=== PATIENT | female | born 1970 ===

== ENCOUNTER 2018-02-12 14:06 | Inpatient (IN) | payer OTHER ==
--- NOTE | 2018-02-12 14:58 | ED PDOC ---
Arrival/HPI - General Historian: Patient - History of Present Illness Time/Duration: 24 hours Symptom Onset: Sudden Symptom Course: Unchanged Activities at Onset: Rest Context: Walking, Exertion <Elias Mart - Last Filed: 02/12/18 18:41> <Rufina Rios - Last Filed: 02/12/18 18:43> - General Chief Complaint: Shortness Of Breath Time Seen by Provider: 02/12/18 14:11 - History of Present Illness Narrative History of Present Illness (Text): 02/12/18 14:50 Patient is a 47 year-old female with PMH of peripheral vascular disease ( underwent a venous vascular procedure in her right leg 2 days ago) presents to the ED complaining of shortness of breath, weakness, and dizziness. Patient states these symptoms started yesterday morning after sleeping all night and most of the previous day. Patient states every time she gets up she feels weak and gets very short of breath. Patient also admits to having a cramp-like pain in her calves bilaterally. This calf cramping is a chronic issue. Two weeks ago she had LE doppler which was negative for DVT. She also reports that she has noticed easy bruising for the past two months and has not yet discussed this with her PMD. Patient reports that she smokes 2-3 cigarettes per day. Patient denies fever/chills, nausea/vomiting, cough, chest pain, or any syncopal episodes. (Elias Mart) Past Medical History - Provider Review Nursing Documentation Reviewed: Yes - Travel History Have you recently traveled outside [place] w/in the past 3 mons?: No - Infectious Disease Hx of Infectious Diseases: None - Cardiac Hx Cardiac Disorders: Yes Other/Comment: Right leg vascular procedure - Pulmonary Hx Respiratory Disorders: No - Neurological Hx Neurological Disorder: No - HEENT Hx HEENT Disorder: No - Renal Hx Renal Disorder: No - Endocrine/Metabolic Hx Endocrine Disorders: No - Hematological/Oncological Hx Blood Disorders: No - Integumentary Hx Dermatological Disorder: No - Musculoskeletal/Rheumatological Hx Musculoskeletal Disorders: No - Gastrointestinal Hx Gastrointestinal Disorders: No - Genitourinary/Gynecological Hx Genitourinary Disorders: No - Psychiatric Hx Psychophysiologic Disorder: No Hx Substance Use: No - Anesthesia Hx Anesthesia: No <Elias Mart - Last Filed: 02/12/18 18:41> Family/Social History - Physician Review Nursing Documentation Reviewed: Yes Family/Social History: Diabetes (mother) Smoking Status: Never Smoked Hx Alcohol Use: No Hx Substance Use: No <Elias Mart - Last Filed: 02/12/18 18:41> Allergies/Home Meds <Elias Mart - Last Filed: 02/12/18 18:41> <Rufina Rios - Last Filed: 02/12/18 18:43> Allergies/Adverse Reactions: Allergies latex Allergy (Verified 02/12/18 14:35) RASH Home Medications: Home Meds Medication Instructions Recorded Confirmed No Known Home Med 02/12/18 02/12/18 Review of Systems - Review of Systems Constitutional: absent: Fatigue, Fevers Eyes: absent: Vision Changes, Photophobia ENT: absent: Sore Throat, Rhinorrhea Respiratory: SOB. absent: Cough, Sputum, Wheezing Cardiovascular: Edema, Calf Pain, GALINDO. absent: Chest Pain Gastrointestinal: absent: Abdominal Pain, Nausea, Vomiting Genitourinary Female: absent: Dysuria, Frequency Musculoskeletal: absent: Neck Pain, Joint Swelling Skin: absent: Rash, Pruritis Neurological: Dizziness. absent: Headache Endocrine: absent: Diaphoresis Hemo/Lymphatic: Easy Bruising. absent: Adenopathy Psychiatric: absent: Anxiety, Depression <Elias Mart - Last Filed: 02/12/18 18:41> Physical Exam Vital Signs Reviewed: Yes Temperature: Afebrile Blood Pressure: Normal Pulse: Tachycardic Respiratory Rate: Tachypneic Appearance: Positive for: Non-Toxic, Uncomfortable Pain Distress: Mild Mental Status: Positive for: Alert and Oriented X 3 - Systems Exam Head: Present: Atraumatic, Normocephalic Pupils: Present: PERRL Extroacular Muscles: Present: EOMI Conjunctiva: Present: Normal Mouth: Present: Moist Mucous Membranes Pharnyx: Present: Normal. No: ERYTHEMA, EXUDATE Nose (External): Present: Atraumatic Neck: Present: Normal Range of Motion. No: JVD Respiratory/Chest: Present: Clear to Auscultation. No: Wheezes, Rales, Rhonchi Cardiovascular: Present: Regular Rate and Rhythm, Normal S1, S2. No: Murmurs, Rub, Gallop Abdomen: No: Tenderness, Rebound, Guarding Back: Present: Normal Inspection Upper Extremity: Present: Normal Inspection. No: Cyanosis, Edema Lower Extremity: Present: Edema, Capillary Refill < 2 s, Other (small, clean and dry post-op wounds on R medial knee). No: Cyanosis Neurological: Present: Speech Normal, Motor Func Grossly Intact Skin: Present: Warm, Dry Psychiatric: Present: Alert, Oriented x 3 <Elias Mart - Last Filed: 02/12/18 18:41> Vital Signs Temp Pulse Resp BP Pulse Ox 02/12/18 17:33 97.8 F 90 18 145/97 H 98 02/12/18 15:24 18 100 02/12/18 14:27 97.8 F 131 H 18 135/94 H 100 Medical Decision Making <Elias Mart - Last Filed: 02/12/18 18:41> - Critical Care Critical Care Minutes: 30 minutes Critical Care Time: Excluding Proc Time - Lab Interpretations I have reviewed the lab results: Yes - RAD Interpretation Band Nailer: Radiologist - EKG Interpretation Interpreted by ED Physician: Yes Type: 12 lead EKG <Rufina Rios - Last Filed: 02/12/18 18:43> ED Course and Treatment: 02/12/18 15:01 -Patient states she is still SOB with even mild exertion -Also found to be tachycardic on arrival -Given recent vascular surgery, will work up for PE -CBC, CMP, CXR, UA -Will proceed with CTA after CMP 02/12/18 17:40 -Patient states she feels better s/p one dose of toradol -CXR unremarkable -Will give 1L NS bolus -She is going for CTA now 02/12/18 18:40 -CTA positive for bilateral pulmonary emboli -Troponin 0.14 -Plan on admission to ICU -Spoke with Dr. Chun who reached out to ICU team who agrees to admission ( Elias Mart) 02/12/18 In agreement with resident note, which includes further HPI details. Patient was seen and evaluated with resident, came up with plan and treatment together. Patient presenting with shortness of breath and tachycardia after surgery, concerning for PE Chest X-ray: Creator : Natalia Wall MD FINDINGS: LUNGS: The lungs are well inflated and clear. PLEURA: No significant pleural effusion identified, no pneumothorax apparent. CARDIOVASCULAR: Normal. OSSEOUS STRUCTURES: No significant abnormalities. VISUALIZED UPPER ABDOMEN: Normal. OTHER FINDINGS: None. IMPRESSION: No active pulmonary disease. 02/12/[address] with Contrast: Creator : Natalia Wall MD FINDINGS: PULMONARY ARTERIES: There are central filling defects in both upper lobe, right middle lobe, lingular and bilateral lower lobe segmental pulmonary arteries. There is no filling defect in the pulmonary trunk or main pulmonary arteries. AORTA: No acute findings. No thoracic aortic aneurysm. LUNGS: The lungs are well inflated. There is a 6 mm subpleural nodule in the lateral basal segment of the right lower lobe (series 5, image 17). There is linear atelectasis in the lingula. No left lung nodule, mass or pulmonary consolidation. PLEURAL SPACES: No effusion or pneumothorax. HEART: The heart is normal in size. There is mild enlargement of the right ventricle and leftward bowing of the interventricular septum. LYMPH NODES: No lymphadenopathy. BONES, CHEST WALL: Unremarkable. No fracture or destructive lesion OTHER FINDINGS: Fatty liver. Both adrenal glands are normal. No calcified gallstones. IMPRESSION: 1. Extensive acute pulmonary embolism involving the segmental bilateral upper lobe, right middle lobe, lingular and bilateral lower lobe pulmonary arteries with evidence of right ventricular strain. 2. 6 mm subpleural nodule in the lateral basal segment of the right lower lobe. Follow-up CT scan 6-12 month interval is recommended to assess stability of this nodule. Critical findings were discussed with Dr. Rufina Rios on 02/12/2018 at 6: 10 p.m. 02/12/18 18:42 02/12/18 18:11 Discussed case with , who is aware and agrees with ICU placement for Heparin bolus and IV drip for PE. She agrees to admit patient to her service. (Rufina Rios) - Lab Interpretations Lab Results: 02/12/18 16:00 02/12/18 16:51 Lab Results 02/12/18 16:51: Sodium 142, Potassium 3.9, Chloride 109 H, Carbon Dioxide 24, Anion Gap 13, BUN 18, Creatinine 0.8, Est GFR ( Amer) > 60, Est GFR (Non- Af Amer) > 60, Random Glucose 99, Calcium 9.1, Phosphorus 3.3, Magnesium 2.4 H, Total Bilirubin 0.6, AST 42 H, ALT 38, Alkaline Phosphatase 68, Lactate Dehydrogenase 661, Total Creatine Kinase 48, Troponin I 0.14 H*, NT-Pro-B Natriuret Pep 2310 H, Total Protein 6.6, Albumin 3.8, Globulin 2.8, Albumin/ Globulin Ratio 1.4 02/12/18 16:00: PT 10.5, INR 0.92, APTT 26.4 02/12/18 16:00: WBC 12.5 H, RBC 4.17, Hgb 13.6, Hct 40.5, MCV 97.1, MCH 32.6, MCHC 33.6, RDW 15.5 H, Plt Count 222, MPV 10.3, Gran % 81.6 H, Lymph % (Auto) 11.6 L, [place] % (Auto) 6.4 H, Eos % (Auto) 0.3 L, Baso % (Auto) 0.1, Gran # 10.23 H, Lymph # (Auto) 1.5, [place] # (Auto) 0.8 H, Eos # (Auto) 0.0, Baso # (Auto ) 0.01 - RAD Interpretation Radiology Orders: 02/12/18 14:47 CHEST PORTABLE [RAD] Stat 02/12/18 15:08 ANGIO CHEST PE PROTOCOL [CT] Stat - Medication Orders Current Medication Orders: Heparin Sodium/Sodium Chloride (Heparin 83647 Units/250ml 1/2 Normal Saline) 25 ,000 units in 250 mls @ 18.077 mls/hr IV .[id number] PRN; Protocol; 18 UNITS/KG/HR PRN Reason: ADJUST RATE PER PROTOCOL Last Admin: 02/12/18 18:30 Dose: 18.077 mls/hr eMAR Start Stop Document 02/12/18 18:30 OCS (Rec: 02/12/18 18:31 OCS [id number]) Intravenous Solution Start Date 02/12/18 Start Time 18:31 MAR aPTT Document 02/12/18 18:30 OCS (Rec: 02/12/18 18:31 OCS [id number]) aPTT aPTT (secs) 26.2 Discontinued Medications Aspirin (Aspirin Chewable) 324 mg PO STAT STA Stop: 02/12/18 17:53 Last Admin: 02/12/18 18:30 Dose: 324 mg Heparin Sodium (Porcine) (Heparin) 5,000 units IV ONCE ONE PRN Reason: Protocol Stop: 02/12/18 18:14 Last Admin: 02/12/18 18:29 Dose: 5,000 units eMAR Start Stop Document 02/12/18 18:29 OCS (Rec: 02/12/18 18:30 OCS [id number]) Intravenous Solution Start Date 02/12/18 Start Time 18:29 End Date 02/12/18 End time 18:31 Total Infusion Time 2 MAR aPTT Document 02/12/18 18:29 OCS (Rec: 02/12/18 18:30 OCS [id number]) aPTT aPTT (secs) 26.4 Sodium Chloride (Sodium Chloride 0.9%) 1,000 mls @ 999 mls/hr IV .Q1H1M STA Stop: 02/12/18 18:33 Last Admin: 02/12/18 18:32 Dose: 999 mls/hr eMAR Start Stop Document 02/12/18 18:32 OCS (Rec: 02/12/18 18:33 OCS [id number]) Intravenous Solution Start Date 02/12/18 Start Time 18:33 End Date 02/12/18 End time 19:34 Total Infusion Time 61 Ketorolac Tromethamine (Toradol) 30 mg IVP STAT STA Stop: 02/12/18 15:07 Last Admin: 02/12/18 16:09 Dose: 30 mg MAR Pain Assessment Document 02/12/18 16:09 OCS (Rec: 02/12/18 16:09 [id number] Pain Reassessment Is this a pain reassessment? No Sleep Is patient sleeping during reassessment? No Presence of Pain Presence of Pain Yes Pain Scale Used Pain Scale Used Numeric IVP Administration Document 02/12/18 16:09 OCS (Rec: 02/12/18 16:09 OCS [id number]) Charges for Administration # of IVP Administrations 1 <Elias Mart - Last Filed: 02/12/18 18:41> - Scribe Statement The provider has reviewed the documentation as recorded by the Scribe <Rufina Rios - Last Filed: 02/12/18 18:43> - Scribe Statement Juve Alonso Provider Scribe Attestation: All medical record entries made by the Scribe were at my direction and personally dictated by me. I have reviewed the chart and agree that the record accurately reflects my personal performance of the history, physical exam, medical decision making, and the department course for this patient. I have also personally directed, reviewed, and agree with the discharge instructions and disposition. (Rufina Rios) Disposition/Present on Arrival - Present on Arrival Any Indicators Present on Arrival: No History of DVT/PE: No History of Uncontrolled Diabetes: No Urinary Catheter: No History of Decub. Ulcer: No History Surgical Site Infection Following: None - Disposition Disposition Time: 18:28 Patient Plan: ICU <Elias Mart - Last Filed: 02/12/18 18:41> - Disposition Have Diagnosis and Disposition been Completed?: Yes Patient Plan: ICU <Rufina Rios - Last Filed: 02/12/18 18:43> - Disposition Diagnosis: Pulmonary emboli Disposition: HOSPITALIZED Patient Problems: Current Active Problems Problem Status Onset Pulmonary emboli Acute Condition: CRITICAL
[2018-02-12 16:21] LABS: BASO # 0.01 K/mm3 (0.0-2.0); BASO % 0.1 % (0.0-3.0); EOS % 0.3 % (1.5-5.0); GRAN # 10.23 (1.4-6.5); GRAN % 81.6 % (50.0-68.0); HEMOGLOBIN 13.6 g/dL (12.0-16.0); LYMPH # 1.5 (1.2-3.4); LYMPH % 11.6 % (22.0-35.0); MEAN CELL VOLUME 97.1 fl (80.0-105.0); MEAN CORPUSCULAR HEMOGLOBIN 32.6 pg (25.0-35.0); MEAN CORPUSCULAR HGB CONC 33.6 g/dl (31.0-37.0); MEAN PLATELET VOLUME 10.3 fl (7.0-11.0); MONO # 0.8 (0.1-0.6); MONO % 6.4 % (1.0-6.0); RBC 4.17 10^6/uL (3.5-6.1); RED CELL DISTRIBUTION WIDTH 15.5 % (11.5-14.5); WHITE BLOOD COUNT 12.5 10^3/ul (4.5-11.0)
[2018-02-12 16:35] LABS: INR 0.92; PARTIAL THROMBOPLASTIN TIME 26.4 Seconds (25.1-36.5); PROTHROMBIN TIME 10.5 SECONDS (9.4-12.5)
[2018-02-12 17:25] LABS: ALB/GLOB RATIO 1.4 (1.1-1.8); ALBUMIN 3.8 g/dL (3.0-4.8); ALT/SGPT 38 U/L (7-56); AST/SGOT 42 U/L (14-36); BLOOD UREA NITROGEN 18 mg/dL (7-21); CALCIUM 9.1 mg/dL (8.4-10.5); GFR AFRICAN-AMERICAN > 60; GFR NON-AFRICAN AMERICAN > 60
[2018-02-12] MEDS ORDERED: Iodixanol 320 MG/ML 100 ML BOTTLE IV ONE (17:29)
[2018-02-12] MEDS ORDERED: Sodium Chloride 0.9% 1,000 ML IV STA (17:33)
--- NOTE | 2018-02-12 17:34 | RAD ---
Date of service: 02/12/2018 HISTORY: SOB, recent surgery, concern for PE COMPARISON: No prior. FINDINGS: LUNGS: The lungs are well inflated and clear. PLEURA: No significant pleural effusion identified, no pneumothorax apparent. CARDIOVASCULAR: Normal. OSSEOUS STRUCTURES: No significant abnormalities. VISUALIZED UPPER ABDOMEN: Normal. OTHER FINDINGS: None. IMPRESSION: No active pulmonary disease.
[2018-02-12 17:40] LABS: B-TYPE NATRIURETIC PEPTIDE 2310 pg/mL (0-450); TROPONIN I 0.14 ng/mL
--- NOTE | 2018-02-12 18:19 | CT ---
Date of service: 02/12/2018 PROCEDURE: CT Chest with contrast (Pulmonary Angiogram) HISTORY: shortness of breath, postop COMPARISON: None available. TECHNIQUE: Axial computed tomography images were obtained of the chest in the pulmonary arterial phase of enhancement. Coronal and sagittal reformatted images were created and reviewed. Intravenous contrast dose: 100 mL Visipaque 320 Radiation dose: Total exam DLP = 741.47 mGy-cm. This CT exam was performed using one or more of the following dose reduction techniques: Automated exposure control, adjustment of the mA and/or kV according to patient size, and/or use of iterative reconstruction technique. FINDINGS: PULMONARY ARTERIES: There are central filling defects in both upper lobe, right middle lobe, lingular and bilateral lower lobe segmental pulmonary arteries. There is no filling defect in the pulmonary trunk or main pulmonary arteries. AORTA: No acute findings. No thoracic aortic aneurysm. LUNGS: The lungs are well inflated. There is a 6 mm subpleural nodule in the lateral basal segment of the right lower lobe (series 5, image 17). There is linear atelectasis in the lingula. No left lung nodule, mass or pulmonary consolidation. PLEURAL SPACES: No effusion or pneumothorax. HEART: The heart is normal in size. There is mild enlargement of the right ventricle and leftward bowing of the interventricular septum. LYMPH NODES: No lymphadenopathy. BONES, CHEST WALL: Unremarkable. No fracture or destructive lesion OTHER FINDINGS: Fatty liver. Both adrenal glands are normal. No calcified gallstones. IMPRESSION: 1. Extensive acute pulmonary embolism involving the segmental bilateral upper lobe, right middle lobe, lingular and bilateral lower lobe pulmonary arteries with evidence of right ventricular strain. 2. 6 mm subpleural nodule in the lateral basal segment of the right lower lobe. Follow-up CT scan 6-12 month interval is recommended to assess stability of this nodule. Critical findings were discussed with Dr. Rufina Rios on 02/12/2018 at 6:10 p.m.
[2018-02-12] MEDS: Heparin25000 units/250ml 1/2NS 25,000 UNITS/250 ML BAG IV PRN (18:30)
[2018-02-12] MEDS ORDERED: Albuterol-Ipratrop 3 mg / 0.5 (3 ml) UD IH PRN (18:57)
--- NOTE | 2018-02-12 22:30 | CP.PCM.HP ---
<Marvel Randle - Last Filed: 02/12/18 22:10> History of Present Illness - History of Present Illness History of Present Illness: CC: SOB/Bilateral Leg Pain HPI: Mrs. Neves is a 47 year old female with a past medical history significant for PVD s/p vascular procedure two days PASTE [employer] who presents with two days of SOB and bilateral leg pain. Patient reports that two days ago she had an unspecified vascular procedure done by Dr. Irene in [place], [place]. The next morning, the patient awoke to feeling SOB and with worsening cramping leg pain in her calves bilaterally, which she reports to be chronic. She reports that she stayed in bed for the entire day thinking this was a complication of her procedure and that she would improve. She then awoke this morning with worsening of the same complaints and, after not being able to complete her ADL's , decided to come in for further evaluation. Of note, two weeks ago she had a LE doppler that was negative for DVT's. She denies any other complaints including fevers, chills, headache, chest pain, palpitations, leg swelling, cough, wheezing, hemoptysis, abdominal pain, N/V/D/C, changes in urine output, skin changes, easy bleeding, or any numbness/tingling of any extremity. She also denies any recent travel or personal history of bleeding/clotting disorders. In the ED, patient was found to have extensive acute pulmonary embolism involving the segmental bilateral upper lobe, right middle lobe, lingular and bilateral lower lobe pulmonary arteries with evidence of right ventricular strain on CT Chest with PE protocol. She was given a bolus of heparin and started on a heparin drip. She was then placed under ICU care. PMH: As stated above PSH: As stated above Family History: Mother-"Had a lot of clots" Social History: Smokes 2-3 cigs./day for four years, drinks alcohol socially and denies any illicit drug use Allergies: Latex Home Medications: As per SEP LMP: 12/29/17, regular Present on Admission - Present on Admission Any Indicators Present on Admission: No Review of Systems - Review of Systems Review of Systems: As stated in the HPI, otherwise negative Past Patient History - Infectious Disease Hx of Infectious Diseases: None - Past Social History Smoking Status: Never Smoked - CARDIAC Hx Cardiac Disorders: Yes Other/Comment: Right leg vascular procedure - PULMONARY Hx Respiratory Disorders: No - NEUROLOGICAL Hx Neurological Disorder: No - HEENT Hx HEENT Problems: No - RENAL Hx Chronic Kidney Disease: No - ENDOCRINE/METABOLIC Hx Endocrine Disorders: No - HEMATOLOGICAL/ONCOLOGICAL Hx Blood Disorders: No - INTEGUMENTARY Hx Dermatological Problems: No - MUSCULOSKELETAL/RHEUMATOLOGICAL Hx Musculoskeletal Disorders: No - GASTROINTESTINAL Hx Gastrointestinal Disorders: No - GENITOURINARY/GYNECOLOGICAL Hx Genitourinary Disorders: No - PSYCHIATRIC Hx Psychophysiologic Disorder: No Hx Substance Use: No - SURGICAL HISTORY Hx Surgeries: No - ANESTHESIA Hx Anesthesia: No Meds Allergies/Adverse Reactions: Allergies Allergy/AdvReac Type Severity Reaction Status Date / Time latex Allergy RASH Verified 02/12/18 14:35 Physical Exam - Constitutional Appears: Non-toxic, No Acute Distress - Head Exam Head Exam: ATRAUMATIC, NORMOCEPHALIC - Eye Exam Eye Exam: EOMI, Normal appearance, PERRL Pupil Exam: NORMAL ACCOMODATION - ENT Exam ENT Exam: Mucous Membranes Moist, Normal Exam - Neck Exam Neck exam: Positive for: Full Rom, Normal Inspection. Negative for: Lymphadenopathy, Tenderness - Respiratory Exam Respiratory Exam: Clear to Auscultation Bilateral, NORMAL BREATHING PATTERN. absent: Accessory Muscle Use, Chest Wall Tenderness, Decreased Breath Sounds, Prolonged Expiratory Phase, Rales, Rhonchi, Wheezes, Respiratory Distress, Stridor - Cardiovascular Exam Cardiovascular Exam: REGULAR RHYTHM, RRR, +S1, +S2. absent: Bradycardia, Tachycardia, Clicks, Diastolic murmur, Gallop, Irregular Rhythm, JVD, Rubs, +S4 , Systolic Murmur - GI/Abdominal Exam GI & Abdominal Exam: Normal Bowel Sounds, Soft. absent: Tenderness - Extremities Exam Extremities exam: Positive for: calf tenderness, full ROM, normal capillary refill, tenderness (Calves bilaterally), pedal pulses present. Negative for: joint swelling, normal inspection (RLE with wound dressing from procedure), pedal edema - Back Exam Back exam: absent: CVA tenderness (L), CVA tenderness (R) - Neurological Exam Neurological exam: Alert, CN II-XII Intact, Oriented x3 - Psychiatric Exam Psychiatric exam: Normal Affect, Normal Mood - Skin Skin Exam: Dry, Intact, Normal Color, Warm Results - Vital Signs Recent Vital Signs: Last Vital Signs Temp 98.0 F 02/12/18 21:40 Pulse 85 02/12/18 21:40 Resp 18 02/12/18 21:40 BP 150/90 02/12/18 21:40 Pulse Ox 96 02/12/18 21:40 - Labs Result Diagrams: 02/12/18 16:00 02/12/18 16:51 Assessment & Plan - Assessment and Plan (Free Text) Assessment: 47 year old female with a past medical history significant for PVD s/p vascular procedure two days PASTE [employer] who presents with two days of SOB and bilateral leg pain. In the ED, patient was found to have extensive acute pulmonary embolism involving the segmental bilateral upper lobe, right middle lobe, lingular and bilateral lower lobe pulmonary arteries with evidence of right ventricular strain on CT Chest with PE protocol. She was given a bolus of heparin and started on a heparin drip. She was then placed under ICU care. Plan: 1. Acute PE -CT Chest w/ PE Protocol showed extensive acute pulmonary embolism involving the segmental bilateral upper lobe, right middle lobe, lingular and bilateral lower lobe pulmonary arteries with evidence of right ventricular strain. -Initial troponin elevated at 0.14, with two serial troponins pending -Given bolus of heparin and started on heparin drip -Bilateral Venous Duplex and Echo pending -ICU care -Heme/Onc, IR/Vascular and Cardiology consulted, all recommendations appreciated 2. Pulmonary Nodule -CT Chest showed 6 mm subpleural nodule in the lateral basal segment of the right lower lobe -Follow-up CT scan in 6-12 month interval will be recommended on discharge GI Prophylaxis: Pepcid DVT Prophylaxis: Heparin drip Diet: Heart Healthy Patient seen and case discussed with attending, Dr. Chun. Brice PGY2 - Date & Time Date: 02/12/18 Time: 22:30 <Inés Chun - Last Filed: 02/14/18 07:45> Results - Vital Signs Recent Vital Signs: Last Vital Signs Temp 98.6 F 02/13/18 04:00 Pulse 73 02/13/18 15:50 Resp 23 02/13/18 12:20 BP 142/83 02/13/18 11:00 Pulse Ox 95 02/13/18 12:20 - Labs Result Diagrams: 02/14/18 05:30 02/13/18 05:20 Labs: Laboratory Results - last 24 hr 02/13/18 02/13/18 02/13/18 00:10 00:10 05:20 WBC RBC Hgb Hct MCV MCH MCHC RDW Plt Count MPV Gran % Lymph % (Auto) Faulk % (Auto) Eos % (Auto) Baso % (Auto) Gran # Lymph # (Auto) Faulk # (Auto) Eos # (Auto) Baso # (Auto) Retic Count APTT 201.2 H* Sodium 141 Potassium 4.6 Chloride 110 H Carbon Dioxide 25 Anion Gap 11 BUN 16 Creatinine 0.7 Est GFR ( Amer) > 60 Est GFR (Non-Af Amer) > 60 Random Glucose 102 Calcium 8.6 Ferritin Total Bilirubin 0.7 AST 25 ALT 39 Alkaline Phosphatase 60 Troponin I 0.06 D 0.05 Total Protein 6.3 Albumin 3.6 Globulin 2.7 Albumin/Globulin Ratio 1.3 Urine Color Urine Appearance Urine pH Ur Specific Rippey Urine Protein Urine Glucose (UA) Urine Ketones Urine Blood Urine Nitrate Urine Bilirubin Urine Urobilinogen Ur Leukocyte Esterase Urine RBC Urine WBC Ur Epithelial Cells Urine Bacteria 02/13/18 02/13/18 02/13/18 05:20 06:00 07:40 WBC 9.6 D RBC 3.76 Hgb 11.9 L Hct 37.0 MCV 98.4 MCH 31.6 MCHC 32.2 RDW 15.8 H Plt Count 213 MPV 10.2 Gran % 74.6 H Lymph % (Auto) 17.0 L Faulk % (Auto) 7.2 H Eos % (Auto) 1.0 L Baso % (Auto) 0.2 Gran # 7.19 H Lymph # (Auto) 1.6 Faulk # (Auto) 0.7 H Eos # (Auto) 0.1 Baso # (Auto) 0.02 Retic Count APTT 145.8 H* Sodium Potassium Chloride Carbon Dioxide Anion Gap BUN Creatinine Est GFR ( Amer) Est GFR (Non-Af Amer) Random Glucose Calcium Ferritin Total Bilirubin AST ALT Alkaline Phosphatase Troponin I Total Protein Albumin Globulin Albumin/Globulin Ratio Urine Color Yellow Urine Appearance Clear Urine pH 6.0 Ur Specific Rippey 1.020 Urine Protein Negative Urine Glucose (UA) Negative Urine Ketones Trace H Urine Blood Small H Urine Nitrate Negative Urine Bilirubin Negative Urine Urobilinogen 0.2 Ur Leukocyte Esterase Negative Urine RBC 0 - 2 Urine WBC 1 - 3 Ur Epithelial Cells 3 - 4 Urine Bacteria Trace 02/13/18 02/13/18 02/13/18 11:30 11:30 14:10 WBC RBC Hgb Hct MCV MCH MCHC RDW Plt Count MPV Gran % Lymph % (Auto) Faulk % (Auto) Eos % (Auto) Baso % (Auto) Gran # Lymph # (Auto) Faulk # (Auto) Eos # (Auto) Baso # (Auto) Retic Count 1.46 APTT 73.2 H Sodium Potassium Chloride Carbon Dioxide Anion Gap BUN Creatinine Est GFR ( Amer) Est GFR (Non-Af Amer) Random Glucose Calcium Ferritin 64.6 Total Bilirubin AST ALT Alkaline Phosphatase Troponin I Total Protein Albumin Globulin Albumin/Globulin Ratio Urine Color Urine Appearance Urine pH Ur Specific Rippey Urine Protein Urine Glucose (UA) Urine Ketones Urine Blood Urine Nitrate Urine Bilirubin Urine Urobilinogen Ur Leukocyte Esterase Urine RBC Urine WBC Ur Epithelial Cells Urine Bacteria Attending/Attestation - Attestation I have personally seen and examined this patient.: Yes I have fully participated in the care of the patient.: Yes I have reviewed all pertinent clinical information: Yes Notes (Text): 02/13/18 17:10 Attending note; Patient seen and examined with resident in the ER. Patient's by the bedside. Patient was also seen and examined with flap presser and interventional radiologist. Patient is a 47 year old female with a past medical history significant for PVD s/p vascular procedure two days ago who presents with two days of SOB and bilateral leg pain. CT angio showed bilateral pulmonary embolus with right heart strain. Currently patient with stable vitals. Evaluated by intervention radiologist. Started on IV heparin drip. Monitor patient closely in ICU. Risk factors includes recent surgery, immobilization, obesity, family history of blood clot in mother at age 60. Lower extremity Doppler ordered. Started on oxygen. Continue heparin drip. Monitor closely in ICU. Elevated troponin; secondary to right heart strain. Monitor closely. Echocardiogram ordered. Cardiology evaluation requested. Pulmonary nodule; needs follow-up as outpatient. Oncology evaluation requested to rule out hypercoagulable disorder. The diagnosis, treatment plan discussed with patient and in detail. Upon discharge the patient will follow-up with PMD . 02/14/18 07:44
--- NOTE | 2018-02-12 23:45 | PN ---
Copied To: Luis Burgos MD Attending MD: Luis Burgos MD DATE: 02/12/2018 The patient was seen and examined at bedside in emergency room (ER 17). The patient is comfortable, talks full sentences, not in respiratory or otherwise distress. Blood pressure 106/89, heart rate 90, temperature 97.8, respiratory rate 18, saturation 99% on room air. CAT scan with PE protocol was discussed with Dr. Martin, who saw patient at bedside. Based on clinical presentation, no intra-arterial TPA was recommended by IR. Clearly there is also no indication for systemic tPA at present time. There are some signs of right ventricular strain including troponin and proBNP elevation. Echocardiogram will be ordered as well. The patient will be going to ICU. The patient received a bolus of IV heparin and started on heparin drip. Full consult will be done by nighttime keyboard specialist to whom the patient will be signed out. Luis Burgos MD
[2018-02-13 00:29] VITALS: BMI 41.3
--- NOTE | 2018-02-13 01:42 | CP.PCM.CON ---
History of Present Illness - History of Present Illness History of Present Illness: 47 year old woman admitted with complaints of sob, blurry vision, weakness, dizziness, chest pain, leg pain, has PMH of PVD, bilateral knee surgery, right leg vascular procedure, family history of diabetes mellitus SOB Blurry vision. Weakness Dizziness. Chest pain. Leg pain. leukocytosis Coag-NL Trop 0.14 BNP 2310 AST 42 CXR-NAD CT chest-B/L upper lobe ext PE PMH: PVDs Bilateral knee surgery. Obesity-BMI 40.5 Right leg vascular procedure. Family History of DM CURRENT MEDS: ASA Duoneb Q2H Heparin Pepcid Zofran Review of Systems - Review of Systems All systems: reviewed and no additional remarkable complaints except (as mentioned above.) Past Patient History - Infectious Disease Hx of Infectious Diseases: None - Tetanus Immunizations Tetanus Immunization: Unknown - Past Medical History & Family History Past Medical History?: Yes Pertinent Family History: Diabetes mellitus. - Past Social History Smoking Status: Never Smoked Alcohol: None Drugs: Denies Home Situation {Lives}: With Family Domestic Violence: Negative - CARDIAC Hx Cardiac Disorders: Yes Other/Comment: Right leg vascular procedure - PULMONARY Hx Respiratory Disorders: No - NEUROLOGICAL Hx Neurological Disorder: No - HEENT Hx HEENT Problems: No - RENAL Hx Chronic Kidney Disease: No - ENDOCRINE/METABOLIC Hx Endocrine Disorders: No - HEMATOLOGICAL/ONCOLOGICAL Hx Blood Disorders: No - INTEGUMENTARY Hx Dermatological Problems: No - MUSCULOSKELETAL/RHEUMATOLOGICAL Hx Musculoskeletal Disorders: No - GASTROINTESTINAL Hx Gastrointestinal Disorders: No - GENITOURINARY/GYNECOLOGICAL Hx Genitourinary Disorders: No - PSYCHIATRIC Hx Psychophysiologic Disorder: No Hx Substance Use: No - SURGICAL HISTORY Hx Surgeries: No - ANESTHESIA Hx Anesthesia: No Meds Allergies/Adverse Reactions: Allergies Allergy/AdvReac Type Severity Reaction Status Date / Time latex Allergy RASH Verified 02/12/18 14:35 - Medications Medications: Current Medications Albuterol/Ipratropium (Duoneb 3 Mg/0.5 Mg (3 Ml) Ud) 3 ml IH Q2H PRN PRN Reason: Shortness of Breath Aspirin (Ecotrin) 81 mg PO DAILY BJORN Famotidine (Pepcid) 40 mg PO HS BJORN Last Admin: 02/12/18 22:52 Dose: 40 mg Heparin Sodium/Sodium Chloride (Heparin 61978 Units/250ml 1/2 Normal Saline) 25 ,000 units in 250 mls @ 18.077 mls/hr IV .[id number] PRN; Protocol; 18 UNITS/KG/HR PRN Reason: ADJUST RATE PER PROTOCOL Last Admin: 02/12/18 18:30 Dose: 18.077 mls/hr Ondansetron HCl (Zofran Inj) 4 mg IVP Q4H PRN PRN Reason: Nausea/Vomiting Physical Exam - Constitutional Appears: Well, No Acute Distress - Head Exam Head Exam: ATRAUMATIC, NORMAL INSPECTION, NORMOCEPHALIC Additional comments: Obese person. - Eye Exam Eye Exam: Normal appearance - ENT Exam ENT Exam: Normal External Ear Exam - Neck Exam Neck exam: Positive for: Normal Inspection - Respiratory Exam Respiratory Exam: Clear to Auscultation Bilateral, NORMAL BREATHING PATTERN. absent: Rales, Wheezes, Respiratory Distress, Stridor - Cardiovascular Exam Cardiovascular Exam: REGULAR RHYTHM, +S1 (Normal), +S2 (Normal.). absent: JVD - GI/Abdominal Exam GI & Abdominal Exam: absent: Distended - Rectal Exam Rectal Exam: Deferred - Exam Additional comments: Deferred. - Extremities Exam Extremities exam: Positive for: normal inspection. Negative for: pedal edema, tenderness - Back Exam Back exam: NORMAL INSPECTION - Neurological Exam Neurological exam: Alert, Oriented x3 - Psychiatric Exam Psychiatric exam: Normal Affect, Normal Mood - Skin Skin Exam: Normal Color Results - Vital Signs Recent Vital Signs: Last Vital Signs Temp 98.1 F 02/12/18 22:18 Pulse 82 02/13/18 00:50 Resp 18 02/13/18 00:40 BP 147/93 H 02/13/18 00:30 Pulse Ox 99 02/13/18 00:50 - Labs Result Diagrams: 02/12/18 16:00 02/12/18 16:51 Labs: Laboratory Results - last 24 hr 02/13/18 02/13/18 00:10 00:10 APTT 201.2 H* Troponin I 0.06 D - EKG Data EKG shows normal: Sinus rhythm - Imaging and Cardiology CT scan - chest Status: Report reviewed by me (Bilateral upper lobes extensive pulmonary emboli. ) Assessment & Plan - Assessment and Plan (Free Text) Assessment: Bilateral pulmonary embolism. Leukocytosis. Elevated troponin level. Elevated BNP. Borderline elevation of AST. PVD. Obesity. History of right leg vascular procedure. HIstory fo both knees surgery. Family history of DM. Plan: Intravenous heparin. Aspirin. Duoneb nebulizer treatment. Pepcid. Zofran prn. Oncology consultation with at discretion of . Cardiology consultation at discretion of for elevated BNP. - Date & Time Date: 02/13/18 Time: 01:52
[2018-02-13 05:47] LABS: BASO # 0.02 K/mm3 (0.0-2.0); BASO % 0.2 % (0.0-3.0); EOS # 0.1 (0.0-0.7); GRAN # 7.19 (1.4-6.5); GRAN % 74.6 % (50.0-68.0); HEMOGLOBIN 11.9 g/dL (12.0-16.0); LYMPH # 1.6 (1.2-3.4); MEAN CELL VOLUME 98.4 fl (80.0-105.0); MEAN CORPUSCULAR HEMOGLOBIN 31.6 pg (25.0-35.0); MEAN CORPUSCULAR HGB CONC 32.2 g/dl (31.0-37.0); MEAN PLATELET VOLUME 10.2 fl (7.0-11.0); MONO # 0.7 (0.1-0.6); MONO % 7.2 % (1.0-6.0); RBC 3.76 10^6/uL (3.5-6.1); RED CELL DISTRIBUTION WIDTH 15.8 % (11.5-14.5); WHITE BLOOD COUNT 9.6 10^3/ul (4.5-11.0)
[2018-02-13 06:02] LABS: TROPONIN I 0.05 ng/mL
[2018-02-13 06:03] LABS: ALB/GLOB RATIO 1.3 (1.1-1.8); ALBUMIN 3.6 g/dL (3.0-4.8); ALT/SGPT 39 U/L (7-56); AST/SGOT 25 U/L (14-36); BLOOD UREA NITROGEN 16 mg/dL (7-21); CALCIUM 8.6 mg/dL (8.4-10.5); GFR AFRICAN-AMERICAN > 60; GFR NON-AFRICAN AMERICAN > 60
[2018-02-13 06:37] LABS: URINE BILIRUBIN NEGATIVE (NEGATIVE); URINE BLOOD SMALL (NEGATIVE); URINE GLUCOSE (UA) NEGATIVE (NEGATIVE); URINE LEUKOCYTE ESTERASE NEGATIVE Leu/uL (NEGATIVE); URINE PROTEIN NEGATIVE mg/dL (<30 mg/dL); URINE UROBILINOGEN 0.2 E.U./dL (<1 E.U./dL)
[2018-02-13 06:44] LABS: URINE COLOR YELLOW (YELLOW)
[2018-02-13 06:45] LABS: URINE APPEARANCE CLEAR (CLEAR)
[2018-02-13 06:48] LABS: URINE RBC 0 - 2 /hpf (0-2)
[2018-02-13 06:49] LABS: URINE BACTERIA TRACE (NEG)
--- NOTE | 2018-02-13 07:37 | CP.PCM.PN ---
<Flash Rabago - Last Filed: 02/13/18 16:15> Subjective - Date & Time of Evaluation Date of Evaluation: 02/13/18 Time of Evaluation: 07:37 - Subjective Subjective: Flash Rabago PGY1 Internal Medicine Progress Note for Dr. Chun 47 year old female seen and evaluated at bedside this morning. She continues to experience difficulty with breathing however denies any chest tightness at this time. She admits to left calf pain as well as right thigh pain where the vascular procedure was done. Patient also admits to some pelvic pain stating it is probably secondary to menses. She has not ambulated on her own since being admitted to the ICU. Tolerating her diet. Respiratory therapist saw her this morning and did not give her any medicine or treatments because the patient felt she did not need it. Denies headache, dizziness, nausea, vomiting, chest pain, palpitations, abdominal pain, fever, chills. Objective - Vital Signs/Intake and Output Vital Signs (last 24 hours): Temp Pulse Resp BP Pulse Ox 98.6 F 78 23 135/91 H 98 02/13/18 04:00 02/13/18 04:10 02/13/18 04:10 02/13/18 04:00 02/13/18 04:10 Intake and Output: 02/13/18 02/13/18 06:59 18:59 Intake Total 1280 Output Total 800 Balance 480 - Medications Medications: Current Medications Albuterol/Ipratropium (Duoneb 3 Mg/0.5 Mg (3 Ml) Ud) 3 ml IH Q2H PRN PRN Reason: Shortness of Breath Aspirin (Ecotrin) 81 mg PO DAILY BJORN Famotidine (Pepcid) 40 mg PO HS BJORN Last Admin: 02/12/18 22:52 Dose: 40 mg Heparin Sodium/Sodium Chloride (Heparin 33282 Units/250ml 1/2 Normal Saline) 25 ,000 units in 250 mls @ 18.077 mls/hr IV .[id number] PRN; Protocol; 18 UNITS/KG/HR PRN Reason: ADJUST RATE PER PROTOCOL Last Titration: 02/13/18 01:55 Dose: 15 units/kg/hr, 15.064 mls/hr Ondansetron HCl (Zofran Inj) 4 mg IVP Q4H PRN PRN Reason: Nausea/Vomiting - Labs Labs: 02/13/18 05:20 02/13/18 05:20 PT 10.5 SECONDS (9.4-12.5) 02/12/18 16:00 INR 0.92 02/12/18 16:00 APTT 201.2 Seconds (25.1-36.5) H* 02/13/18 00:10 - Constitutional Appears: Well, Non-toxic, No Acute Distress - Head Exam Head Exam: ATRAUMATIC, NORMAL INSPECTION, NORMOCEPHALIC - Eye Exam Eye Exam: EOMI, Normal appearance - ENT Exam ENT Exam: Mucous Membranes Moist - Respiratory Exam Respiratory Exam: Clear to Ausculation Bilateral, NORMAL BREATHING PATTERN. absent: Wheezes, Respiratory Distress - Cardiovascular Exam Cardiovascular Exam: REGULAR RHYTHM, +S1, +S2. absent: Murmur - GI/Abdominal Exam GI & Abdominal Exam: Soft, Normal Bowel Sounds. absent: Tenderness - Extremities Exam Extremities Exam: Calf Tenderness Additional comments: Right inner thigh steri-strips c/d/i where vascular procedure done - Neurological Exam Neurological Exam: Alert, Awake, Oriented x3 - Psychiatric Exam Psychiatric exam: Normal Affect, Normal Mood - Skin Skin Exam: Dry, Intact, Normal Color, Warm Assessment and Plan - Assessment and Plan (Free Text) Assessment: 47 year old female, PMH of vascular procedure on 02/10/18, bilateral knee repairs , and hypothyroidism, presented to the ED w/ shortness of breath and chest tightness admitted to the ICU for extensive bilateral pulmonary embolisms evident on CT chest currently on a heparin drip at 15 u/kg/hr. Plan: 1. Acute Pulmonary Embolism - CT Chest showed extensive acute pulmonary embolism involving the segmental bilateral upper lobe, right middle lobe, lingular and bilateral lower lobe pulmonary arteries with evidence of right ventricular strain - Intial Troponins 0.14, .06, .05 likely secondary to right heart strain - Heparin drip 18 u/kg/hr - Albuterol/Ipratropium Q2 PRN - Aspirin 81mg PO - Duplex LE negative for DVT bilaterally - Continue to monitor PTT, today 145.8 - Currently satting 95% on Room Air - Pending ECHO - Pending thrombophilia work up including Antiphospholipid, Factor V, and Prothrombin Gene analysis - Heme/Onc Dr. Pearce consulted: rule out thrombophilia. Protein C+S and antithrombin III to be sent at a later time due to recent clot. On therapeutic anticoagulation; consider NOAC for outpatient treatment. - Cardiology Dr. Pretty consulted, recommendations appreciated - Vascular Dr. Martin consulted, recommendations appreciated 2. Pulmonary Nodule - CT Chest showed 6 mm subpleural nodule in the lateral basal segment of the right lower lobe - Follow-up CT scan in 6-12 month interval will be recommended upon discharge 3. Anemia, mild - H/H is 11.9/37 - Iron studies, Folate and B12 levels ordered 4. Tobacco Abuse - Advised on smoking cessation GI Prophylaxis: Pepcid DVT Prophylaxis: Heparin drip Diet: Heart Healthy Dispo: Continue to monitor in MICU Patient seen and case discussed with attending, Dr. Chun. Flash Rabago PGY1 <Inés Chun - Last Filed: 02/14/18 07:50> Objective - Vital Signs/Intake and Output Vital Signs (last 24 hours): Temp Pulse Resp BP Pulse Ox 98.4 F 70 20 136/95 H 100 02/14/18 06:00 02/14/18 06:00 02/14/18 06:00 02/14/18 06:00 02/14/18 06:00 Intake and Output: 02/14/18 02/14/18 06:59 18:59 Intake Total 200 120 Output Total 1000 Balance 200 -880 - Medications Medications: Current Medications Albuterol/Ipratropium (Duoneb 3 Mg/0.5 Mg (3 Ml) Ud) 3 ml IH Q2H PRN PRN Reason: Shortness of Breath Aspirin (Ecotrin) 81 mg PO DAILY BJORN Last Admin: 02/13/18 09:02 Dose: 81 mg Famotidine (Pepcid) 40 mg PO HS BJORN Last Admin: 02/13/18 21:07 Dose: 40 mg Heparin Sodium/Sodium Chloride (Heparin 85240 Units/250ml 1/2 Normal Saline) 25 ,000 units in 250 mls @ 18.077 mls/hr IV .[id number] PRN; Protocol; 18 UNITS/KG/HR PRN Reason: ADJUST RATE PER PROTOCOL Last Titration: 02/14/18 05:30 Dose: 12 units/kg/hr, 12.051 mls/hr Ondansetron HCl (Zofran Inj) 4 mg IVP Q4H PRN PRN Reason: Nausea/Vomiting - Labs Labs: 02/14/18 05:30 02/13/18 05:20 PT 10.5 SECONDS (9.4-12.5) 02/12/18 16:00 INR 0.92 02/12/18 16:00 APTT 75.3 Seconds (25.1-36.5) H 02/14/18 05:30 Attending/Attestation - Attestation I have personally seen and examined this patient.: Yes I have fully participated in the care of the patient.: Yes I have reviewed all pertinent clinical information, including history, physical exam and plan: Yes Notes (Text): 02/14/18 07:46 Attending note; Patient seen and examined with resident in ICU. Patient's by the bedside. Patient is sitting in chair. Denies any shortness of breath. Vitals stable. Complaining of nonspecific leg pain. Patient is a 47 year old female with a past medical history significant for PVD s/p vascular procedure two days ago who presents with two days of SOB and bilateral leg pain. CT angio showed bilateral pulmonary embolus with right heart strain. Currently on IV heparin drip. PTT is therapeutic. Risk factors includes recent surgery, immobilization, obesity, family history of blood clot in mother at age 60. Lower extremity Doppler is negative for DVT. Elevated troponin; trending down. secondary to right heart strain. Monitor closely. Echocardiogram showed ejection fraction of 56% with RVSP 52. Cardiology evaluation appreciated. Pulmonary nodule; needs follow-up as outpatient. Case discussed with oncologist in detail. Hypercoagulable workup in process. We will start oral anticoagulant. Out of bed to chair as tolerated. Transfer out of ICU. We will get PT evaluation. Upon discharge the patient will follow-up with PMD .
--- NOTE | 2018-02-13 10:38 | US ---
HISTORY: Leg pain and swelling. Evaluate for DVT PHYSICIAN(S): Bon Martin MD. TECHNIQUE: Duplex sonography and color-flow Doppler with graded compression were used to evaluate the deep venous systems of both lower extremities. FINDINGS: The visualized deep venous systems of both lower extremities are sonographically normal and compressible. Normal wave forms and augmentation are seen. There is no sonographic evidence for deep venous thrombosis in the visualized segments of both lower extremities. IMPRESSION: No sonographic evidence for deep venous thrombosis in the visualized segments of both lower extremities.
--- NOTE | 2018-02-13 10:48 | CP.PCM.CON ---
History of Present Illness - History of Present Illness History of Present Illness: 47 year old female with a history of tobacco abuse, chronic B/L knee pain and B/ L leg swelling s/p recent vascular intervention, admitted with B/L PE with RV strain. The patient notes to a recent vascular intervention to the veins in her right leg. The following day she awoke with chest pain, shortness of breath , and fatigue. Her symptoms worsened which prompted her to come to the hospital. In the ER she was found to have B/L PE's with RV strain. LE venous duplex was negative for DVT. She was placed on a heparin drip and currently notes to feeling better. She does admit to limited mobility due to her knee pains for which she gets injections. Past medical history: tobacco abuse, obesity Past surgical history: Right shoulder surgery Family history: Mother had blood clots Social history: 4-5 cigarettes daily, social alcohol, denies illicit drug use. Allergies: Latex Review of systems: All remaining review of systems including HEENT, cardiovascular, respiratory, gastrointestinal, genitourinary, musculoskeletal, dermatologic, neurologic, and psychiatric are negative unless mentioned in the HPI. Past Patient History - Infectious Disease Hx of Infectious Diseases: None - Tetanus Immunizations Tetanus Immunization: Unknown - Past Medical History & Family History Past Medical History?: Yes - Past Social History Smoking Status: Never Smoked Alcohol: None Drugs: Denies Home Situation {Lives}: With Family Domestic Violence: Negative - CARDIAC Hx Cardiac Disorders: Yes Other/Comment: Right leg vascular procedure - PULMONARY Hx Respiratory Disorders: No - NEUROLOGICAL Hx Neurological Disorder: No - HEENT Hx HEENT Problems: No - RENAL Hx Chronic Kidney Disease: No - ENDOCRINE/METABOLIC Hx Endocrine Disorders: No - HEMATOLOGICAL/ONCOLOGICAL Hx Blood Disorders: No - INTEGUMENTARY Hx Dermatological Problems: No - MUSCULOSKELETAL/RHEUMATOLOGICAL Hx Musculoskeletal Disorders: No - GASTROINTESTINAL Hx Gastrointestinal Disorders: No - GENITOURINARY/GYNECOLOGICAL Hx Genitourinary Disorders: No - PSYCHIATRIC Hx Psychophysiologic Disorder: No Hx Substance Use: No - SURGICAL HISTORY Hx Surgeries: No - ANESTHESIA Hx Anesthesia: No Meds Allergies/Adverse Reactions: Allergies Allergy/AdvReac Type Severity Reaction Status Date / Time latex Allergy RASH Verified 02/12/18 14:35 - Medications Medications: Current Medications Albuterol/Ipratropium (Duoneb 3 Mg/0.5 Mg (3 Ml) Ud) 3 ml IH Q2H PRN PRN Reason: Shortness of Breath Aspirin (Ecotrin) 81 mg PO DAILY [facility] Last Admin: 02/13/18 09:02 Dose: 81 mg Famotidine (Pepcid) [address] [facility] Last Admin: 02/12/18 22:52 Dose: 40 mg Heparin Sodium/Sodium Chloride (Heparin 29739 Units/250ml 1/2 Normal Saline) 25 ,000 units in 250 mls @ 18.077 mls/hr IV .[id number] PRN; Protocol; 18 UNITS/KG/HR PRN Reason: ADJUST RATE PER PROTOCOL Last Titration: 02/13/18 09:39 Dose: 12 units/kg/hr, 12.051 mls/hr Ondansetron HCl (Zofran Inj) 4 mg IVP Q4H PRN PRN Reason: Nausea/Vomiting Physical Exam - Head Exam Head Exam: ATRAUMATIC - Eye Exam Eye Exam: Normal appearance - ENT Exam ENT Exam: Mucous Membranes Dry - Respiratory Exam Respiratory Exam: NORMAL BREATHING PATTERN - Cardiovascular Exam Cardiovascular Exam: +S1, +S2 - GI/Abdominal Exam GI & Abdominal Exam: Normal Bowel Sounds - Extremities Exam Extremities exam: Positive for: pedal edema - Neurological Exam Neurological exam: Oriented x3 - Psychiatric Exam Psychiatric exam: Normal Affect, Normal Mood - Skin Skin Exam: Warm Results - Vital Signs Recent Vital Signs: Last Vital Signs Temp 98.6 F 02/13/18 04:00 Pulse 78 02/13/18 04:10 Resp 23 02/13/18 04:10 BP 135/91 H 02/13/18 04:00 Pulse Ox 98 02/13/18 04:10 - Labs Result Diagrams: 02/13/18 05:20 02/13/18 05:20 Labs: Laboratory Results - last 24 hr 02/13/18 02/13/18 02/13/18 00:10 00:10 05:20 WBC RBC Hgb Hct MCV MCH MCHC RDW Plt Count MPV Gran % Lymph % (Auto) Dane % (Auto) Eos % (Auto) Baso % (Auto) Gran # Lymph # (Auto) Dane # (Auto) Eos # (Auto) Baso # (Auto) APTT 201.2 H* Sodium 141 Potassium 4.6 Chloride 110 H Carbon Dioxide 25 Anion Gap 11 BUN 16 Creatinine 0.7 Est GFR ( Amer) > 60 Est GFR (Non-Af Amer) > 60 Random Glucose 102 Calcium 8.6 Total Bilirubin 0.7 AST 25 ALT 39 Alkaline Phosphatase 60 Troponin I 0.06 D 0.05 Total Protein 6.3 Albumin 3.6 Globulin 2.7 Albumin/Globulin Ratio 1.3 Urine Color Urine Appearance Urine pH Ur Specific [place] Urine Protein Urine Glucose (UA) Urine Ketones Urine Blood Urine Nitrate Urine Bilirubin Urine Urobilinogen Ur Leukocyte Esterase Urine RBC Urine WBC Ur Epithelial Cells Urine Bacteria 02/13/18 02/13/18 02/13/18 05:20 06:00 07:40 WBC 9.6 D RBC 3.76 Hgb 11.9 L Hct 37.0 MCV 98.4 MCH 31.6 MCHC 32.2 RDW 15.8 H Plt Count 213 MPV 10.2 Gran % 74.6 H Lymph % (Auto) 17.0 L Dane % (Auto) 7.2 H Eos % (Auto) 1.0 L Baso % (Auto) 0.2 Gran # 7.19 H Lymph # (Auto) 1.6 Dane # (Auto) 0.7 H Eos # (Auto) 0.1 Baso # (Auto) 0.02 APTT 145.8 H* Sodium Potassium Chloride Carbon Dioxide Anion Gap BUN Creatinine Est GFR ( Amer) Est GFR (Non-Af Amer) Random Glucose Calcium Total Bilirubin AST ALT Alkaline Phosphatase Troponin I Total Protein Albumin Globulin Albumin/Globulin Ratio Urine Color Yellow Urine Appearance Clear Urine pH 6.0 Ur Specific [place] 1.020 Urine Protein Negative Urine Glucose (UA) Negative Urine Ketones Trace H Urine Blood Small H Urine Nitrate Negative Urine Bilirubin Negative Urine Urobilinogen 0.2 Ur Leukocyte Esterase Negative Urine RBC 0 - 2 Urine WBC 1 - 3 Ur Epithelial Cells 3 - 4 Urine Bacteria Trace Assessment & Plan (1) Pulmonary emboli Assessment and Plan: risk factors include obesity, cigarettes, limited mobility from arthritis, recent vascular intervention will need to rule out inherited thrombophilia; protein C+S and antithrombin III to be sent at a later time due to recent clot. on therapeutic anticoagulation; consider NOAC for outpatient treatment Status: Acute (2) Coagulopathy Assessment and Plan: secondary to anticoagulation Status: Acute (3) Anemia Assessment and Plan: mild work up sent Status: Acute (4) Tobacco abuse Assessment and Plan: smoking cessation discussed at length Thank you for this interesting consult. Status: Acute
--- NOTE | 2018-02-13 11:43 | CP.CCUPN ---
<Samira Hicks - Last Filed: 02/13/18 11:47> CCU Subjective - Physician Review Events Since Last Encounter (Free Text): Samira Hicks, PGY-1 ICU Progress Note Patient seen and examined at bedside this morning. No acute events overnight. Tolerating diet well. HR and BP have been stable overnight. Pending transfer to today. Denies CP, SOB, headaches, back pain and urinary complaints. 12 point ROS noted here, otherwise negative. CCU Objective - Vital Signs / Intake & Output Intake and Output (Last 8hrs): Intake & Output 02/12/18 02/13/18 02/13/18 22:59 06:59 14:59 Intake Total 1280 97.3 Output Total 800 Balance 480 97.3 Weight 226 lb 1.6 oz Intake: IV 1130 97.3 Left Antecubital 1000 Right Hand 130 Oral 150 Output: Urine 800 Urine, Voided 800 Other: # Bowel Movements 0 - Physical Exam Head: Positive for: Atraumatic, Normocephalic Pupils: Positive for: PERRL Extroacular Muscles: Positive for: EOMI Conjunctiva: Positive for: Normal Mouth: Positive for: Moist Mucous Membranes Pharnyx: Positive for: Normal. Negative for: ERYTHEMA, EXUDATE Nose (External): Positive for: Atraumatic Neck: Positive for: Normal Range of Motion. Negative for: JVD Respiratory/Chest: Positive for: Clear to Auscultation, Good Air Exchange. Negative for: Wheezes, Rales, Rhonchi Cardiovascular: Positive for: Regular Rate and Rhythm, Normal S1, S2. Negative for: Murmurs, Rub, Gallop Abdomen: Positive for: Normal Bowel Sounds. Negative for: Tenderness, Rebound, Guarding Back: Positive for: Normal Inspection Upper Extremity: Positive for: Normal Inspection. Negative for: Cyanosis, Edema Lower Extremity: Positive for: Edema, Capillary Refill < 2 s, Other (small, clean and dry post-op wounds on R medial knee). Negative for: Cyanosis Neurological: Positive for: GCS=15, Speech Normal, Motor Func Grossly Intact Skin: Positive for: Warm, Dry Psychiatric: Positive for: Alert, Oriented x 3 - Medications Active Medications: Active Medications Generic Name Dose Route Start Last Admin Trade Name Freq PRN Reason Stop Dose Admin Albuterol/Ipratropium 3 ml 02/12/18 18:57 Duoneb 3 Mg/0.5 Mg (3 Ml) Ud IH Q2H PRN Shortness of Breath Aspirin 81 mg 02/13/18 10:00 02/13/18 09:02 Ecotrin PO 81 mg DAILY BJORN Administration Famotidine 40 mg 02/12/18 22:00 02/12/18 22:52 Pepcid PO 40 mg HS BJORN Administration Heparin Sodium/Sodium Chloride 25,000 units in 250 mls @ 18.077 mls/hr 18:13 02/13/18 09:39 Heparin 90552 Units/250ml 1/2 Normal Saline IV 12 units/kg/hr .[id number] PRN 12.051 mls/hr ADJUST RATE PER PROTOCOL Titration Protocol 18 UNITS/KG/HR Ondansetron HCl 4 mg 02/12/18 18:57 Zofran Inj IVP Q4H PRN Nausea/Vomiting - Patient Studies Lab Studies: Lab Studies 02/13/18 02/13/18 02/13/18 Range/Units 07:40 06:00 05:20 WBC 9.6 D (4.5-11.0) 10^3/ul RBC 3.76 (3.5-6.1) 10^6/uL Hgb 11.9 L (12.0-16.0) g/dL Hct 37.0 (36.0-48.0) % MCV 98.4 (80.0-105.0) fl MCH 31.6 (25.0-35.0) pg MCHC 32.2 (31.0-37.0) g/dl RDW 15.8 H (11.5-14.5) % Plt Count 213 (120.0-450.0) 10^3/uL MPV 10.2 (7.0-11.0) fl Gran % 74.6 H (50.0-68.0) % Lymph % (Auto) 17.0 L (22.0-35.0) % Lake % (Auto) 7.2 H (1.0-6.0) % Eos % (Auto) 1.0 L (1.5-5.0) % Baso % (Auto) 0.2 (0.0-3.0) % Gran # 7.19 H (1.4-6.5) Lymph # (Auto) 1.6 (1.2-3.4) Lake # (Auto) 0.7 H (0.1-0.6) Eos # (Auto) 0.1 (0.0-0.7) Baso # (Auto) 0.02 (0.0-2.0) K/mm3 APTT 145.8 H* (25.1-36.5) Seconds Sodium (132-148) mmol/L Potassium (3.6-5.0) mmol/L Chloride (98-107) mmol/L Carbon Dioxide (21-33) mmol/L Anion Gap (10-20) BUN (7-21) mg/dL Creatinine (0.7-1.2) mg/dl Est GFR ( Amer) Est GFR (Non-Af Amer) Random Glucose (70-110) mg/dL Calcium (8.4-10.5) mg/dL Total Bilirubin (0.2-1.3) mg/dL AST (14-36) U/L ALT (7-56) U/L Alkaline Phosphatase (38-126) U/L Troponin I ng/mL Total Protein (5.8-8.3) g/dL Albumin (3.0-4.8) g/dL Globulin gm/dL Albumin/Globulin Ratio (1.1-1.8) Urine Color Yellow (YELLOW) Urine Appearance Clear (CLEAR) Urine pH 6.0 (4.7-8.0) Ur Specific [place] 1.020 (1.005-1.035) Urine Protein Negative (<30 mg/dL) mg/dL Urine Glucose (UA) Negative (NEGATIVE) mg/dL Urine Ketones Trace H (NEGATIVE) mg/dL Urine Blood Small H (NEGATIVE) Urine Nitrate Negative (NEGATIVE) Urine Bilirubin Negative (NEGATIVE) Urine Urobilinogen 0.2 (<1 E.U./dL) E.U./dL Ur Leukocyte Esterase Negative (NEGATIVE) Lexis/uL Urine RBC 0 - 2 (0-2) /hpf Urine WBC 1 - 3 (0-6) /hpf Ur Epithelial Cells 3 - 4 (0-5) /hpf Urine Bacteria Trace (NEG) 02/13/18 02/13/18 02/13/18 Range/Units 05:20 00:10 00:10 WBC (4.5-11.0) 10^3/ul RBC (3.5-6.1) 10^6/uL Hgb (12.0-16.0) g/dL Hct (36.0-48.0) % MCV (80.0-105.0) fl MCH (25.0-35.0) pg MCHC (31.0-37.0) g/dl RDW (11.5-14.5) % Plt Count (120.0-450.0) 10^3/uL MPV (7.0-11.0) fl Gran % (50.0-68.0) % Lymph % (Auto) (22.0-35.0) % Lake % (Auto) (1.0-6.0) % Eos % (Auto) (1.5-5.0) % Baso % (Auto) (0.0-3.0) % Gran # (1.4-6.5) Lymph # (Auto) (1.2-3.4) [place] # (Auto) (0.1-0.6) Eos # (Auto) (0.0-0.7) Baso # (Auto) (0.0-2.0) K/mm3 APTT 201.2 H* (25.1-36.5) Seconds Sodium 141 (132-148) mmol/L Potassium 4.6 (3.6-5.0) mmol/L Chloride 110 H (98-107) mmol/L Carbon Dioxide 25 (21-33) mmol/L Anion Gap 11 (10-20) BUN 16 (7-21) mg/dL Creatinine 0.7 (0.7-1.2) mg/dl Est GFR ( Amer) > 60 Est GFR (Non-Af Amer) > 60 Random Glucose 102 (70-110) mg/dL Calcium 8.6 (8.4-10.5) mg/dL Total Bilirubin 0.7 (0.2-1.3) mg/dL AST 25 (14-36) U/L ALT 39 (7-56) U/L Alkaline Phosphatase 60 (38-126) U/L Troponin I 0.05 0.06 D ng/mL Total Protein 6.3 (5.8-8.3) g/dL Albumin 3.6 (3.0-4.8) g/dL Globulin 2.7 gm/dL Albumin/Globulin Ratio 1.3 (1.1-1.8) Urine Color (YELLOW) Urine Appearance (CLEAR) Urine pH (4.7-8.0) Ur Specific [place] (1.005-1.035) Urine Protein (<30 mg/dL) mg/dL Urine Glucose (UA) (NEGATIVE) mg/dL Urine Ketones (NEGATIVE) mg/dL Urine Blood (NEGATIVE) Urine Nitrate (NEGATIVE) Urine Bilirubin (NEGATIVE) Urine Urobilinogen (<1 E.U./dL) E.U./dL Ur Leukocyte Esterase (NEGATIVE) Lexis/uL Urine RBC (0-2) /hpf Urine WBC (0-6) /hpf Ur Epithelial Cells (0-5) /hpf Urine Bacteria (NEG) Laboratory Results - last 24 hr 02/13/18 02/13/18 02/13/18 00:10 00:10 05:20 WBC RBC Hgb Hct MCV MCH MCHC RDW Plt Count MPV Gran % Lymph % (Auto) Lake % (Auto) Eos % (Auto) Baso % (Auto) Gran # Lymph # (Auto) [place] # (Auto) Eos # (Auto) Baso # (Auto) APTT 201.2 H* Sodium 141 Potassium 4.6 Chloride 110 H Carbon Dioxide 25 Anion Gap 11 BUN 16 Creatinine 0.7 Est GFR ( Amer) > 60 Est GFR (Non-Af Amer) > 60 Random Glucose 102 Calcium 8.6 Total Bilirubin 0.7 AST 25 ALT 39 Alkaline Phosphatase 60 Troponin I 0.06 D 0.05 Total Protein 6.3 Albumin 3.6 Globulin 2.7 Albumin/Globulin Ratio 1.3 Urine Color Urine Appearance Urine pH Ur Specific [place] Urine Protein Urine Glucose (UA) Urine Ketones Urine Blood Urine Nitrate Urine Bilirubin Urine Urobilinogen Ur Leukocyte Esterase Urine RBC Urine WBC Ur Epithelial Cells Urine Bacteria 02/13/18 02/13/18 02/13/18 05:20 06:00 07:40 WBC 9.6 D RBC 3.76 Hgb 11.9 L Hct 37.0 MCV 98.4 MCH 31.6 MCHC 32.2 RDW 15.8 H Plt Count 213 MPV 10.2 Gran % 74.6 H Lymph % (Auto) 17.0 L [place] % (Auto) 7.2 H Eos % (Auto) 1.0 L Baso % (Auto) 0.2 Gran # 7.19 H Lymph # (Auto) 1.6 [place] # (Auto) 0.7 H Eos # (Auto) 0.1 Baso # (Auto) 0.02 APTT 145.8 H* Sodium Potassium Chloride Carbon Dioxide Anion Gap BUN Creatinine Est GFR ( Amer) Est GFR (Non-Af Amer) Random Glucose Calcium Total Bilirubin AST ALT Alkaline Phosphatase Troponin I Total Protein Albumin Globulin Albumin/Globulin Ratio Urine Color Yellow Urine Appearance Clear Urine pH 6.0 Ur Specific [place] 1.020 Urine Protein Negative Urine Glucose (UA) Negative Urine Ketones Trace H Urine Blood Small H Urine Nitrate Negative Urine Bilirubin Negative Urine Urobilinogen 0.2 Ur Leukocyte Esterase Negative Urine RBC 0 - 2 Urine WBC 1 - 3 Ur Epithelial Cells 3 - 4 Urine Bacteria Trace Critical Care Progress Note - Nutrition Nutrition: Nutrition Category Date Time Status Heart Healthy Diet [DIET] Diets 02/12/18 Dinner Active Assessment/Plan - Assessment and Plan (Free Text) Assessment: Assessment: This is a 47 year old female with a past medical history significant for PVD s/p vascular procedure two days ASSESSMENT NURSE presenting to ICU for management of P.E. on heparin drip. Will transfer today pending cardiology/ vascular/hematology recommendations. Plan: Neuro: -maintain normothermia -AAO x3, moving extremities spontaneously past midline Cardio: -maintain MAP>65 -HR and BP noted, trended and reviewed. Overnight, HR 80-90 and BP 140-150/90- 100. -will monitor vitals including HR and BP closely -Troponin is 0.05 down from 0.14 -on ASA 81mg -echo pending -cardiology consult, Dr. Pretty Lungs: -SaO2 >90% -supplementary O2 PRN, duonebs PRN -on heparin drip per P.E. protocol. At current time, heparin drip is temporarily stopped per guidelines -CT chest showed extensive acute pulmonary embolism involving the segmental bilateral upper lobe, right middle lobe, lingular and bilateral lower lobe pulmonary arteries with evidence of right ventricular strain -IR/vascular consult, Dr. Martin Renal: -maintain euvolemia -avoid nephrotoxic agents, hypochloremia -replace electrolytes as needed -BUN/Cr WNL Heme: -PT/INR: 10.5/0.92 yesterday -PTT today is 145.8 down from 201.2 earlier today -Hg WNL -Heme/onc consult, Dr. Pearce Endo: -maintain euglycemia ID: -WBC is WNL, afebrile. No concern at this time -GI: -heart healthy diet -GI prophylaxis with pepcid <Jeremie Posadas - Last Filed: 02/13/18 12:11> CCU Objective - Vital Signs / Intake & Output Intake and Output (Last 8hrs): Intake & Output 02/12/18 02/13/18 02/13/18 22:59 06:59 14:59 Intake Total 1280 97.3 Output Total 800 Balance 480 97.3 Weight 226 lb 1.6 oz Intake: IV 1130 97.3 Left Antecubital 1000 Right Hand 130 Oral 150 Output: Urine 800 Urine, Voided 800 Other: # Bowel Movements 0 - Medications Active Medications: Active Medications Generic Name Dose Route Start Last Admin Trade Name Freq PRN Reason Stop Dose Admin Albuterol/Ipratropium 3 ml 02/12/18 18:57 Duoneb 3 Mg/0.5 Mg (3 Ml) Ud IH Q2H PRN Shortness of Breath Aspirin 81 mg 02/13/18 10:00 02/13/18 09:02 Ecotrin PO 81 mg DAILY BJORN Administration Famotidine 40 mg 02/12/18 22:00 02/12/18 22:52 Pepcid PO 40 mg HS BJORN Administration Heparin Sodium/Sodium Chloride 25,000 units in 250 mls @ 18.077 mls/hr 18:13 02/13/18 09:39 Heparin 44445 Units/250ml 1/2 Normal Saline IV 12 units/kg/hr .[id number] PRN 12.051 mls/hr ADJUST RATE PER PROTOCOL Titration Protocol 18 UNITS/KG/HR Ondansetron HCl 4 mg 02/12/18 18:57 Zofran Inj IVP Q4H PRN Nausea/Vomiting - Patient Studies Lab Studies: Lab Studies 02/13/18 02/13/18 02/13/18 Range/Units 11:30 07:40 06:00 WBC (4.5-11.0) 10^3/ul RBC (3.5-6.1) 10^6/uL Hgb (12.0-16.0) g/dL Hct (36.0-48.0) % MCV (80.0-105.0) fl MCH (25.0-35.0) pg MCHC (31.0-37.0) g/dl RDW (11.5-14.5) % Plt Count (120.0-450.0) 10^3/uL MPV (7.0-11.0) fl Gran % (50.0-68.0) % Lymph % (Auto) (22.0-35.0) % Lake % (Auto) (1.0-6.0) % Eos % (Auto) (1.5-5.0) % Baso % (Auto) (0.0-3.0) % Gran # (1.4-6.5) Lymph # (Auto) (1.2-3.4) [place] # (Auto) (0.1-0.6) Eos # (Auto) (0.0-0.7) Baso # (Auto) (0.0-2.0) K/mm3 Retic Count 1.46 (0.5-1.5) % APTT 145.8 H* (25.1-36.5) Seconds Sodium (132-148) mmol/L Potassium (3.6-5.0) mmol/L Chloride (98-107) mmol/L Carbon Dioxide (21-33) mmol/L Anion Gap (10-20) BUN (7-21) mg/dL Creatinine (0.7-1.2) mg/dl Est GFR ( Amer) Est GFR (Non-Af Amer) Random Glucose (70-110) mg/dL Calcium (8.4-10.5) mg/dL Total Bilirubin (0.2-1.3) mg/dL AST (14-36) U/L ALT (7-56) U/L Alkaline Phosphatase (38-126) U/L Troponin I ng/mL Total Protein (5.8-8.3) g/dL Albumin (3.0-4.8) g/dL Globulin gm/dL Albumin/Globulin Ratio (1.1-1.8) Urine Color Yellow (YELLOW) Urine Appearance Clear (CLEAR) Urine pH 6.0 (4.7-8.0) Ur Specific [place] 1.020 (1.005-1.035) Urine Protein Negative (<30 mg/dL) mg/dL Urine Glucose (UA) Negative (NEGATIVE) mg/dL Urine Ketones Trace H (NEGATIVE) mg/dL Urine Blood Small H (NEGATIVE) Urine Nitrate Negative (NEGATIVE) Urine Bilirubin Negative (NEGATIVE) Urine Urobilinogen 0.2 (<1 E.U./dL) E.U./dL Ur Leukocyte Esterase Negative (NEGATIVE) Lexis/uL Urine RBC 0 - 2 (0-2) /hpf Urine WBC 1 - 3 (0-6) /hpf Ur Epithelial Cells 3 - 4 (0-5) /hpf Urine Bacteria Trace (NEG) 02/13/18 02/13/18 02/13/18 Range/Units 05:20 05:20 00:10 WBC 9.6 D (4.5-11.0) 10^3/ul RBC 3.76 (3.5-6.1) 10^6/uL Hgb 11.9 L (12.0-16.0) g/dL Hct 37.0 (36.0-48.0) % MCV 98.4 (80.0-105.0) fl MCH 31.6 (25.0-35.0) pg MCHC 32.2 (31.0-37.0) g/dl RDW 15.8 H (11.5-14.5) % Plt Count 213 (120.0-450.0) 10^3/uL MPV 10.2 (7.0-11.0) fl Gran % 74.6 H (50.0-68.0) % Lymph % (Auto) 17.0 L (22.0-35.0) % Lake % (Auto) 7.2 H (1.0-6.0) % Eos % (Auto) 1.0 L (1.5-5.0) % Baso % (Auto) 0.2 (0.0-3.0) % Gran # 7.19 H (1.4-6.5) Lymph # (Auto) 1.6 (1.2-3.4) [place] # (Auto) 0.7 H (0.1-0.6) Eos # (Auto) 0.1 (0.0-0.7) Baso # (Auto) 0.02 (0.0-2.0) K/mm3 Retic Count (0.5-1.5) % APTT 201.2 H* (25.1-36.5) Seconds Sodium 141 (132-148) mmol/L Potassium 4.6 (3.6-5.0) mmol/L Chloride 110 H (98-107) mmol/L Carbon Dioxide 25 (21-33) mmol/L Anion Gap 11 (10-20) BUN 16 (7-21) mg/dL Creatinine 0.7 (0.7-1.2) mg/dl Est GFR ( Amer) > 60 Est GFR (Non-Af Amer) > 60 Random Glucose 102 (70-110) mg/dL Calcium 8.6 (8.4-10.5) mg/dL Total Bilirubin 0.7 (0.2-1.3) mg/dL AST 25 (14-36) U/L ALT 39 (7-56) U/L Alkaline Phosphatase 60 (38-126) U/L Troponin I 0.05 ng/mL Total Protein 6.3 (5.8-8.3) g/dL Albumin 3.6 (3.0-4.8) g/dL Globulin 2.7 gm/dL Albumin/Globulin Ratio 1.3 (1.1-1.8) Urine Color (YELLOW) Urine Appearance (CLEAR) Urine pH (4.7-8.0) Ur Specific [place] (1.005-1.035) Urine Protein (<30 mg/dL) mg/dL Urine Glucose (UA) (NEGATIVE) mg/dL Urine Ketones (NEGATIVE) mg/dL Urine Blood (NEGATIVE) Urine Nitrate (NEGATIVE) Urine Bilirubin (NEGATIVE) Urine Urobilinogen (<1 E.U./dL) E.U./dL Ur Leukocyte Esterase (NEGATIVE) Lexis/uL Urine RBC (0-2) /hpf Urine WBC (0-6) /hpf Ur Epithelial Cells (0-5) /hpf Urine Bacteria (NEG) 02/13/18 Range/Units 00:10 WBC (4.5-11.0) 10^3/ul RBC (3.5-6.1) 10^6/uL Hgb (12.0-16.0) g/dL Hct (36.0-48.0) % MCV (80.0-105.0) fl MCH (25.0-35.0) pg MCHC (31.0-37.0) g/dl RDW (11.5-14.5) % Plt Count (120.0-450.0) 10^3/uL MPV (7.0-11.0) fl Gran % (50.0-68.0) % Lymph % (Auto) (22.0-35.0) % [place] % (Auto) (1.0-6.0) % Eos % (Auto) (1.5-5.0) % Baso % (Auto) (0.0-3.0) % Gran # (1.4-6.5) Lymph # (Auto) (1.2-3.4) [place] # (Auto) (0.1-0.6) Eos # (Auto) (0.0-0.7) Baso # (Auto) (0.0-2.0) K/mm3 Retic Count (0.5-1.5) % APTT (25.1-36.5) Seconds Sodium (132-148) mmol/L Potassium (3.6-5.0) mmol/L Chloride (98-107) mmol/L Carbon Dioxide (21-33) mmol/L Anion Gap (10-20) BUN (7-21) mg/dL Creatinine (0.7-1.2) mg/dl Est GFR ( Amer) Est GFR (Non-Af Amer) Random Glucose (70-110) mg/dL Calcium (8.4-10.5) mg/dL Total Bilirubin (0.2-1.3) mg/dL AST (14-36) U/L ALT (7-56) U/L Alkaline Phosphatase (38-126) U/L Troponin I 0.06 D ng/mL Total Protein (5.8-8.3) g/dL Albumin (3.0-4.8) g/dL Globulin gm/dL Albumin/Globulin Ratio (1.1-1.8) Urine Color (YELLOW) Urine Appearance (CLEAR) Urine pH (4.7-8.0) Ur Specific [place] (1.005-1.035) Urine Protein (<30 mg/dL) mg/dL Urine Glucose (UA) (NEGATIVE) mg/dL Urine Ketones (NEGATIVE) mg/dL Urine Blood (NEGATIVE) Urine Nitrate (NEGATIVE) Urine Bilirubin (NEGATIVE) Urine Urobilinogen (<1 E.U./dL) E.U./dL Ur Leukocyte Esterase (NEGATIVE) Lexis/uL Urine RBC (0-2) /hpf Urine WBC (0-6) /hpf Ur Epithelial Cells (0-5) /hpf Urine Bacteria (NEG) Laboratory Results - last 24 hr 02/13/18 02/13/18 02/13/18 00:10 00:10 05:20 WBC RBC Hgb Hct MCV MCH MCHC RDW Plt Count MPV Gran % Lymph % (Auto) [place] % (Auto) Eos % (Auto) Baso % (Auto) Gran # Lymph # (Auto) [place] # (Auto) Eos # (Auto) Baso # (Auto) Retic Count APTT 201.2 H* Sodium 141 Potassium 4.6 Chloride 110 H Carbon Dioxide 25 Anion Gap 11 BUN 16 Creatinine 0.7 Est GFR ( Amer) > 60 Est GFR (Non-Af Amer) > 60 Random Glucose 102 Calcium 8.6 Total Bilirubin 0.7 AST 25 ALT 39 Alkaline Phosphatase 60 Troponin I 0.06 D 0.05 Total Protein 6.3 Albumin 3.6 Globulin 2.7 Albumin/Globulin Ratio 1.3 Urine Color Urine Appearance Urine pH Ur Specific [place] Urine Protein Urine Glucose (UA) Urine Ketones Urine Blood Urine Nitrate Urine Bilirubin Urine Urobilinogen Ur Leukocyte Esterase Urine RBC Urine WBC Ur Epithelial Cells Urine Bacteria 02/13/18 02/13/18 02/13/18 05:20 06:00 07:40 WBC 9.6 D RBC 3.76 Hgb 11.9 L Hct 37.0 MCV 98.4 MCH 31.6 MCHC 32.2 RDW 15.8 H Plt Count 213 MPV 10.2 Gran % 74.6 H Lymph % (Auto) 17.0 L [place] % (Auto) 7.2 H Eos % (Auto) 1.0 L Baso % (Auto) 0.2 Gran # 7.19 H Lymph # (Auto) 1.6 [place] # (Auto) 0.7 H Eos # (Auto) 0.1 Baso # (Auto) 0.02 Retic Count APTT 145.8 H* Sodium Potassium Chloride Carbon Dioxide Anion Gap BUN Creatinine Est GFR ( Amer) Est GFR (Non-Af Amer) Random Glucose Calcium Total Bilirubin AST ALT Alkaline Phosphatase Troponin I Total Protein Albumin Globulin Albumin/Globulin Ratio Urine Color Yellow Urine Appearance Clear Urine pH 6.0 Ur Specific [place] 1.020 Urine Protein Negative Urine Glucose (UA) Negative Urine Ketones Trace H Urine Blood Small H Urine Nitrate Negative Urine Bilirubin Negative Urine Urobilinogen 0.2 Ur Leukocyte Esterase Negative Urine RBC 0 - 2 Urine WBC 1 - 3 Ur Epithelial Cells 3 - 4 Urine Bacteria Trace 02/13/18 11:30 WBC RBC Hgb Hct MCV MCH MCHC RDW Plt Count MPV Gran % Lymph % (Auto) [place] % (Auto) Eos % (Auto) Baso % (Auto) Gran # Lymph # (Auto) [place] # (Auto) Eos # (Auto) Baso # (Auto) Retic Count 1.46 APTT Sodium Potassium Chloride Carbon Dioxide Anion Gap BUN Creatinine Est GFR ( Amer) Est GFR (Non-Af Amer) Random Glucose Calcium Total Bilirubin AST ALT Alkaline Phosphatase Troponin I Total Protein Albumin Globulin Albumin/Globulin Ratio Urine Color Urine Appearance Urine pH Ur Specific [place] Urine Protein Urine Glucose (UA) Urine Ketones Urine Blood Urine Nitrate Urine Bilirubin Urine Urobilinogen Ur Leukocyte Esterase Urine RBC Urine WBC Ur Epithelial Cells Urine Bacteria Critical Care Progress Note - Nutrition Nutrition: Nutrition Category Date Time Status Heart Healthy Diet [DIET] Diets 02/12/18 Dinner Active Assessment/Plan - Assessment and Plan (Free Text) Assessment: Patient seen and examined on rounds with resident, agree with note with following additions/exceptions: Patient is 47yo female without sig PMHx, a/w B.L PE on heparin drip Currently afebrile, HD stable, comfortable in NAD, on room air, sat 95%, denies CP, SOB ECHO pending On heparin drip, PTT monitoring IR consulted Follow up cardiology Cont with heparin LE duplex GI ppx Monitor in MICU
[2018-02-13] MEDS: Heparin25000 units/250ml 1/2NS 25,000 UNITS/250 ML BAG IV PRN (12:46)
--- NOTE | 2018-02-13 15:21 | CARD ---
APPROVED REPORT Date of service: 02/12/2018 EKG Measurement Heart [id number] P50 [id number] <Conclusion> Sinus Tachycardia Abnormal ECG
[2018-02-13 16:41] LABS: FERRITIN 64.6 ng/mL
[2018-02-13 17:11] LABS: FOLATE 11.8 ng/mL
--- NOTE | 2018-02-13 19:06 | CARD ---
APPROVED REPORT Date of service: 02/13/2018 EXAM: Two-dimensional and M-mode echocardiogram with Doppler and color Doppler. INDICATION ACUTE PULMONARY EMBOLISM/RVSP/LVFX 2D DIMENSIONS Left Atrium (2D)3.4 (1.6-4.0cm)IVSd1.0 (0.7-1.1cm) LVDd3.6 (3.9-5.9cm)PWd0.9 (0.7-1.1cm) LVDs2.6 (2.5-4.0cm)FS (%) 28.6 % LVEF (%)56.0 (>50%) M-Mode DIMENSIONS Aortic Root3.50 (2.2-3.7cm)Aortic Cusp Exc.1.70 (1.5-2.0cm) Aortic Valve AoV Peak Mfnaqyaf283.0cm/Karissa Peak GR.8mmHg Mitral Valve MV E Nhaggmrt31.9cm/sMV A Qtoafvbt13.1cm/sE/A ratio1.0 TDI Lateral E' Peak V11.60cm/sMedial E' Peak V9.94cm/sE/Lateral E'7.2 E/Medial E'8.4 Pulmonary Valve PV Peak Svoexiib07.5cm/sPV Peak Grad.2mmHg Tricuspid Valve TR Peak [id number]/sRAP [id number] Peak Gr.42mmHg [id number] LEFT VENTRICLE The left ventricle is normal size. There is normal left ventricular wall thickness. The left ventricular function is normal.EF-55-60% There is normal LV segmental wall motion. The left ventricular diastolic function is normal. No left ventricle thrombus noted on this study. There is no ventricular septal defect visualized. There is no left ventricular aneurysm. There is no mass noted in the left ventricle. RIGHT VENTRICLE The right ventricle is normal size. There is normal right ventricular wall thickness. The right ventricular systolic function is normal. ATRIA The left atrium size is normal. The right atrium size is normal. The interatrial septum is intact with no evidence for an atrial septal defect. AORTIC VALVE The aortic valve is thickened but opens well. There is trivial aortic regurgitation. There is no aortic valvular stenosis. There is no aortic valvular vegetation. MITRAL VALVE The mitral valve is thickened but opens well. Trivial MR There is no mitral valve stenosis. There is no evidence of mitral valve prolapse. TRICUSPID VALVE The tricuspid valve leaflets are thickened , but open well. There is mild to moderate tricuspid regurgitation.RVSP-52 mmof Hg. There is no tricuspid valve stenosis. There is no tricuspid valve prolapse or vegetation. PULMONIC VALVE The pulmonary valve is normal in structure. There is trace pulmonic valvular regurgitation. There is no pulmonic valvular stenosis. GREAT VESSELS The aortic root is normal in size. The ascending aorta is normal in size. The pulmonary artery is normal. The IVC is normal in size and collapses >50% with inspiration. PERICARDIAL EFFUSION There is no pleural effusion. There is no pericardial effusion. <Conclusion> Normal chamber Size. EF-55-60%.. Trivial MR/AR Trace PI Mild to moderate TR, RVSP-52 mmof Hg, No clot or thrombus noted
--- NOTE | 2018-02-14 04:03 | CON ---
Copied To: Luz Pretty MD Attending MD: Luz Pretty MD DATE: 02/13/2018 REASON FOR CONSULTATION: Acute PE, positive troponin, cardiac evaluation. BRIEF CLINICAL HISTORY: This is a 47-year-old morbidly obese female with no significant history except right knee surgery in July and recently had vein surgical procedure done for stripping of the vein and laser. After that, patient became very short of breath and dyspnea with minimal exertion, came to the emergency room. Patient had a CT angio that shows bilateral massive PE, so patient admitted here to ICU that shows acute pulmonary involvement involving the segmental bilateral upper lobe, right middle lobe, lingual and bilateral lower lobe pulmonary artery embolism. Patient denies any chest pain or palpitation. Shortness of breath improving. Currently on heparin drip. PAST MEDICAL HISTORY: Significant for obesity, vascular disease, status post vein surgery a day before prior to coming here. PAST SURGICAL HISTORY: Significant for right knee surgery. FAMILY HISTORY: Significant for mother had clot also. SOCIAL HISTORY: She used to smoke more but now smoke 2 to 3 cigarettes per day. Denies any history of alcohol abuse. Denies any history of substance abuse. ALLERGIES: LASIX. CURRENT MEDICATIONS: None. REVIEW OF SYSTEMS: As per HPI. PHYSICAL EXAMINATION: VITAL SIGNS: Height of the patient 5 feet 2 inches, weight of the patient is 226 pounds, body mass index 41.4 kg/sq m. HEENT: PERRLA. Extraocular muscles intact. NECK: Supple. No carotid bruit or thyromegaly. CHEST: Clear to auscultation. HEART: S1 and S2 regular. ABDOMEN: Soft. EXTREMITIES: Clubbing and cyanosis negative. LABORATORY DATA: Blood workup as follows, WBC 9.6, hemoglobin 11.9, hematocrit 37, platelet count 213. Chemistry shows sodium 141, potassium 4.6, chloride 110, carbon dioxide 25, anion gap of 11, BUN 16, creatinine is 0.7. Troponin is 0.14, 0.06. DIAGNOSTIC DATA: EKG showed sinus tachycardia, rate of 117. IMPRESSION: A 47-year-old female morbidly obese, body mass index 42 kg/sq m, admitted with acute pulmonary embolism, bilateral pulmonary embolism, massive; troponin is positive secondary to right ventricular strain. I doubted this myocardial infarction most likely secondary to right ventricular strain secondary to pulmonary embolism, the troponin positive. RECOMMENDATIONS: We will continue IV heparin next 24 hours. Patient remained hemodynamically stable. We will switch over to new anticoagulation, novel oral anticoagulation that Eliquis 10 mg b.i.d. for 7 days, followed by 5 mg b.i.d. I will get echo to assess LV function and RV function, RV systolic pressure. I will get lipid profile, TSH, hemoglobin A1c. Further recommendation depending upon hospital course. We will follow with you. Thank you, Dr. Chun, for providing us the opportunity in taking care of the patient, Ailyn Neves. Luz Pretty MD
[2018-02-14 06:23] LABS: BASO # 0.03 K/mm3 (0.0-2.0); BASO % 0.3 % (0.0-3.0); EOS # 0.1 (0.0-0.7); EOS % 0.9 % (1.5-5.0); GRAN # 7.14 (1.4-6.5); GRAN % 74.5 % (50.0-68.0); HEMOGLOBIN 12.2 g/dL (12.0-16.0); LYMPH # 1.6 (1.2-3.4); LYMPH % 17.1 % (22.0-35.0); MEAN CELL VOLUME 98.2 fl (80.0-105.0); MEAN CORPUSCULAR HEMOGLOBIN 31.8 pg (25.0-35.0); MEAN CORPUSCULAR HGB CONC 32.4 g/dl (31.0-37.0); MEAN PLATELET VOLUME 10.5 fl (7.0-11.0); MONO # 0.7 (0.1-0.6); MONO % 7.2 % (1.0-6.0); RBC 3.84 10^6/uL (3.5-6.1); RED CELL DISTRIBUTION WIDTH 15.6 % (11.5-14.5); WHITE BLOOD COUNT 9.6 10^3/ul (4.5-11.0)
--- NOTE | 2018-02-14 07:34 | CP.PCM.PN ---
<Flash Rabago - Last Filed: 02/14/18 15:27> Subjective - Date & Time of Evaluation Date of Evaluation: 02/14/18 Time of Evaluation: 07:27 - Subjective Subjective: Flash Rabago PGY1 Internal Medicine Progress Note for Dr. Chun 47F seen and evaluated at bedside this morning. Patient transferred to telemetry. No acute events overnight. Patient has no complaints this morning. She slept well overnight. She is tolerating her diet. Patient has not been ambulating since arriving from the unit. States she got her period today and experiencing some spotting. Denies fever, chills, headache, dizziness, nausea, vomiting, chest pain, palpitations, shortness of breath, cough, abdominal pain, or urinary symptoms. Objective - Vital Signs/Intake and Output Vital Signs (last 24 hours): Temp Pulse Resp BP Pulse Ox 98.4 F 70 20 136/95 H 100 02/14/18 06:00 02/14/18 06:00 02/14/18 06:00 02/14/18 06:00 02/14/18 06:00 Intake and Output: 02/14/18 02/14/18 06:59 18:59 Intake Total 200 120 Output Total 1000 Balance 200 -880 - Medications Medications: Current Medications Albuterol/Ipratropium (Duoneb 3 Mg/0.5 Mg (3 Ml) Ud) 3 ml IH Q2H PRN PRN Reason: Shortness of Breath Aspirin (Ecotrin) 81 mg PO DAILY [facility] Last Admin: 02/13/18 09:02 Dose: 81 mg Famotidine (Pepcid) 40 mg PO HS [facility] Last Admin: 02/13/18 21:07 Dose: 40 mg Heparin Sodium/Sodium Chloride (Heparin 74852 Units/250ml 1/2 Normal Saline) 25 ,000 units in 250 mls @ 18.077 mls/hr IV .[id number] PRN; Protocol; 18 UNITS/KG/HR PRN Reason: ADJUST RATE PER PROTOCOL Last Titration: 02/14/18 05:30 Dose: 12 units/kg/hr, 12.051 mls/hr Ondansetron HCl (Zofran Inj) 4 mg IVP Q4H PRN PRN Reason: Nausea/Vomiting - Labs Labs: 02/14/18 05:30 02/13/18 05:20 PT 10.5 SECONDS (9.4-12.5) 02/12/18 16:00 INR 0.92 02/12/18 16:00 APTT 75.3 Seconds (25.1-36.5) H 02/14/18 05:30 - Constitutional Appears: Well, Non-toxic, No Acute Distress - Head Exam Head Exam: ATRAUMATIC, NORMAL INSPECTION, NORMOCEPHALIC - Eye Exam Eye Exam: EOMI Pupil Exam: PERRL - ENT Exam ENT Exam: Mucous Membranes Moist - Respiratory Exam Respiratory Exam: Clear to Ausculation Bilateral, NORMAL BREATHING PATTERN - Cardiovascular Exam Cardiovascular Exam: REGULAR RHYTHM, +S1, +S2. absent: Murmur - GI/Abdominal Exam GI & Abdominal Exam: Soft, Normal Bowel Sounds. absent: Tenderness - Rectal Exam Rectal Exam: Deferred - Neurological Exam Neurological Exam: Alert, Awake, Oriented x3 - Psychiatric Exam Psychiatric exam: Normal Affect, Normal Mood Assessment and Plan - Assessment and Plan (Free Text) Assessment: 47 year old female, PMH of vascular procedure on 02/10/18, bilateral knee repairs , and hypothyroidism, presented to the ED w/ shortness of breath and chest tightness admitted to the ICU for extensive bilateral pulmonary embolisms evident on CT chest currently on a heparin drip at 12 u/kg/hr. Plan: 1. Acute Pulmonary Embolism - CT Chest showed extensive acute pulmonary embolism involving the segmental bilateral upper lobe, right middle lobe, lingular and bilateral lower lobe pulmonary arteries with evidence of right ventricular strain - Intial Troponins 0.14, .06, .05 likely secondary to right heart strain - Heparin drip 12 u/kg/hr - Albuterol/Ipratropium Q2 PRN - Aspirin 81mg PO - Duplex LE negative for DVT bilaterally - ECHO: EF 53%, no thrombus or clot noticed - Continue to monitor PTT, today 75.3 - Currently satting 100% NC on 3L O2 - Pending thrombophilia work up including Antiphospholipid, Factor V, and Prothrombin Gene analysis - Heme/Onc Dr. Pearce consulted: rule out thrombophilia. Protein C+S and antithrombin III to be sent at a later time due to recent clot. On therapeutic anticoagulation; consider NOAC for outpatient treatment. - Cardiology Dr. Pretty consulted: Eliquis 10mg BID x7days, 5mg BID x5days - Vascular Dr. Martin consulted, recommendations appreciated 2. Pulmonary Nodule - CT Chest showed 6 mm subpleural nodule in the lateral basal segment of the right lower lobe - Follow-up CT scan in 6-12 month interval will be recommended upon discharge 3. Anemia, mild - H/H is - Iron studies, Folate and B12 levels within normal limits 4. Tobacco Abuse - Advised on smoking cessation GI Prophylaxis: Pepcid DVT Prophylaxis: Heparin drip Diet: Heart Healthy Dispo: PT evaluation, encourage ambulation. Follow up with Dr. Pearce and Meliton upon discharge. Patient seen and case discussed with attending, Dr. Chun. Flash Rabago PGY1 <Inés Chun - Last Filed: 02/15/18 11:35> Objective - Vital Signs/Intake and Output Vital Signs (last 24 hours): Temp Pulse Resp BP Pulse Ox 98.2 F 72 18 120/79 95 02/15/18 06:00 02/15/18 06:00 02/15/18 06:00 02/15/18 06:00 02/15/18 06:00 Intake and Output: 02/15/18 02/15/18 06:59 18:59 Intake Total 240 Balance 240 - Medications Medications: Current Medications Albuterol/Ipratropium (Duoneb 3 Mg/0.5 Mg (3 Ml) Ud) 3 ml IH Q2H PRN PRN Reason: Shortness of Breath Apixaban (Eliquis) 10 mg PO BID [facility] PRN Reason: Protocol Stop: 02/20/18 23:59 Last Admin: 02/15/18 09:54 Dose: 10 mg Apixaban (Eliquis) 5 mg PO BID [facility] PRN Reason: Protocol Aspirin (Ecotrin) 81 mg PO DAILY [facility] Last Admin: 02/15/18 09:55 Dose: 81 mg Famotidine (Pepcid) 40 mg PO HS [facility] Last Admin: 02/14/18 22:23 Dose: 40 mg Ondansetron HCl (Zofran Inj) 4 mg IVP Q4H PRN PRN Reason: Nausea/Vomiting - Labs Labs: 02/15/18 05:00 02/15/18 05:00 PT 10.5 SECONDS (9.4-12.5) 02/12/18 16:00 INR 0.92 02/12/18 16:00 APTT 29.7 Seconds (25.1-36.5) 02/15/18 05:00 Attending/Attestation - Attestation I have personally seen and examined this patient.: Yes I have fully participated in the care of the patient.: Yes I have reviewed all pertinent clinical information, including history, physical exam and plan: Yes Notes (Text): 02/15/18 11:33 Attending note; Patient seen and examined with resident. Patient's by the bedside. Denies any shortness of breath. Vitals stable. Leg pain is improving. Ambulating fine. Patient is a 47 year old female with a past medical history significant for PVD s/p vascular procedure two days ago who presents with two days of SOB and bilateral leg pain. CT angio showed bilateral pulmonary embolus with right heart strain. started on IV heparin drip. started on eliquis. Risk factors includes recent surgery, immobilization, obesity, family history of blood clot in mother at age 60. Lower extremity Doppler is negative for DVT. Elevated troponin; trending down. secondary to right heart strain. Monitor closely. Echocardiogram showed ejection fraction of 56% with RVSP 52. Cardiology evaluation appreciated. Pulmonary nodule; needs follow-up as outpatient. patient aware of the plan. Case discussed with oncologist in detail. Hypercoagulable workup in process. We will get PT evaluation. possible discharge tomorrow if stable Upon discharge the patient will follow-up with PMD .
[2018-02-14 09:29] LABS: LDL CHOLESTEROL 181 mg/dL (0-129)
[2018-02-14 10:14] LABS: ALB/GLOB RATIO 1.3 (1.1-1.8); ALBUMIN 3.8 g/dL (3.0-4.8); ALT/SGPT 30 U/L (7-56); AST/SGOT 25 U/L (14-36); BLOOD UREA NITROGEN 11 mg/dL (7-21); GFR AFRICAN-AMERICAN > 60; GFR NON-AFRICAN AMERICAN > 60; HDL CHOLESTEROL 53 mg/dL (29-60)
--- NOTE | 2018-02-14 12:00 | PN ---
Copied To: Luz Pretty MD Attending MD: Luz Pretty MD DATE: 02/14/2018 REASON FOR THE CONSULTATION AND FOLLOWUP: Acute PE, positive troponin, cardiac evaluation. SUBJECTIVE: The patient denies any chest pain, shortness of breath or any palpitations. OBJECTIVE: GENERAL: Not in apparent distress. VITAL SIGNS: Temperature afebrile, heart rate 70, blood pressure 136/95. HEENT: PERRLA. Extraocular muscles intact. NECK: Supple. No carotid bruit or thyromegaly. CHEST: Clear to auscultation. HEART: S1, S2 regular. ABDOMEN: Soft. EXTREMITIES: Clubbing, cyanosis negative. LABORATORY DATA: Blood workup as follows: WBC 9.6, hemoglobin 12.2, hematocrit 37.7, platelet count 230. Chemistry shows sodium 141, potassium 4.6, chloride 110, carbon dioxide 25, anion gap of 11, BUN 16, creatinine 0.7. IMPRESSION: Acute bilateral pulmonary embolism, massive troponin positive secondary to right ventricular strain. The patient had echocardiography done yesterday that revealed normal chambers and ejection fraction of 55% to 60%, trivial mitral regurgitation, trivial aortic regurgitation, trace pulmonary insufficiency, [id number] tricuspid regurgitation with right ventricular systolic pressure of 52, morbid obesity. RECOMMENDATIONS: Continue Hematology workup. The was venous procedure for stripping of the vein for varicose vein. We will discontinue heparin, start Eliquis 10 b.i.d. for one week followed by 5 mg b.i.d. for 3 to 6 months. We will start as mentioned Eliquis 10 b.i.d. starting today until 02/20/2018 and followed by 02/21/2018, 5 b.i.d. and we will discontinue heparin one hour after that. We will discontinue heparin today around 12 noon. Waiting for lipid profile, TSH, hemoglobin A1c. Further recommendations will be made upon availability of this blood workup. Thank you, Dr. Chun, for providing us the opportunity in taking care of the patient, Ailyn Neves. Luz Pretty MD cc: Inés Chun MD [facility] # [phone]
[2018-02-15 06:03] LABS: BASO # 0.01 K/mm3 (0.0-2.0); BASO % 0.1 % (0.0-3.0); EOS # 0.1 (0.0-0.7); EOS % 1.2 % (1.5-5.0); GRAN # 5.88 (1.4-6.5); GRAN % 72.5 % (50.0-68.0); HEMOGLOBIN 11.9 g/dL (12.0-16.0); LYMPH # 1.5 (1.2-3.4); LYMPH % 17.9 % (22.0-35.0); MEAN CELL VOLUME 98.1 fl (80.0-105.0); MEAN CORPUSCULAR HEMOGLOBIN 32.1 pg (25.0-35.0); MEAN CORPUSCULAR HGB CONC 32.7 g/dl (31.0-37.0); MEAN PLATELET VOLUME 10.2 fl (7.0-11.0); MONO # 0.7 (0.1-0.6); MONO % 8.3 % (1.0-6.0); RBC 3.71 10^6/uL (3.5-6.1); RED CELL DISTRIBUTION WIDTH 15.3 % (11.5-14.5); WHITE BLOOD COUNT 8.1 10^3/ul (4.5-11.0)
[2018-02-15 06:15] VITALS: O2SAT 95
[2018-02-15 06:24] LABS: ALB/GLOB RATIO 1.3 (1.1-1.8); ALBUMIN 3.6 g/dL (3.0-4.8); ALT/SGPT 31 U/L (7-56); AST/SGOT 24 U/L (14-36); BLOOD UREA NITROGEN 14 mg/dL (7-21); CALCIUM 9.1 mg/dL (8.4-10.5); GFR AFRICAN-AMERICAN > 60; GFR NON-AFRICAN AMERICAN > 60
--- NOTE | 2018-02-15 10:40 | CP.PCM.DIS ---
<Sarthak Galeano - Last Filed: 02/15/18 11:44> Provider - Provider Date of Admission: 02/12/18 18:15 Attending physician: Inés Chun MD Primary care physician: Dante Coelho Consults: Cardiology: Dr. Pretty Pulmonology: Dr. Posadas Heme/Onc: Dr. Pearce Time Spent in preparation of Discharge (in minutes): 100 Diagnosis - Discharge Diagnosis (1) Pulmonary emboli Status: Acute (2) Anemia Status: Acute Hospital Course - Lab Results Lab Results: Micro Results 02/12/18 22:04 Nose MRSA Culture (Admit) - Final MRSA NOT DETECTED Most Recent Lab Values WBC 8.1 10^3/ul (4.5-11.0) 02/15/18 05:00 RBC 3.71 10^6/uL (3.5-6.1) 02/15/18 05:00 Hgb 11.9 g/dL (12.0-16.0) L 02/15/18 05:00 Hct 36.4 % (36.0-48.0) 02/15/18 05:00 MCV 98.1 fl (80.0-105.0) 02/15/18 05:00 MCH 32.1 pg (25.0-35.0) 02/15/18 05:00 MCHC 32.7 g/dl (31.0-37.0) 02/15/18 05:00 RDW 15.3 % (11.5-14.5) H 02/15/18 05:00 Plt Count 222 10^3/uL (120.0-450.0) 02/15/18 05:00 MPV 10.2 fl (7.0-11.0) 02/15/18 05:00 Gran % 72.5 % (50.0-68.0) H 02/15/18 05:00 Lymph % (Auto) 17.9 % (22.0-35.0) L 02/15/18 05:00 [place] % (Auto) 8.3 % (1.0-6.0) H 02/15/18 05:00 Eos % (Auto) 1.2 % (1.5-5.0) L 02/15/18 05:00 Baso % (Auto) 0.1 % (0.0-3.0) 02/15/18 05:00 Gran # 5.88 (1.4-6.5) 02/15/18 05:00 Lymph # (Auto) 1.5 (1.2-3.4) 02/15/18 05:00 [place] # (Auto) 0.7 (0.1-0.6) H 02/15/18 05:00 Eos # (Auto) 0.1 (0.0-0.7) 02/15/18 05:00 Baso # (Auto) 0.01 K/mm3 (0.0-2.0) 02/15/18 05:00 Retic Count 1.46 % (0.5-1.5) 02/13/18 11:30 PT 10.5 SECONDS (9.4-12.5) 02/12/18 16:00 INR 0.92 02/12/18 16:00 APTT 29.7 Seconds (25.1-36.5) 02/15/18 05:00 Sodium 142 mmol/L (132-148) 02/15/18 05:00 Potassium 4.1 mmol/L (3.6-5.0) 02/15/18 05:00 Chloride 109 mmol/L (98-107) H 02/15/18 05:00 Carbon Dioxide 24 mmol/L (21-33) 02/15/18 05:00 Anion Gap 13 (10-20) 02/15/18 05:00 BUN 14 mg/dL (7-21) 02/15/18 05:00 Creatinine 0.7 mg/dl (0.7-1.2) 02/15/18 05:00 Est GFR ( Amer) > 60 02/15/18 05:00 Est GFR (Non-Af Amer) > 60 02/15/18 05:00 Random Glucose 98 mg/dL (70-110) 02/15/18 05:00 Hemoglobin A1c 5.3 % (4.2-6.5) 02/14/18 05:30 Calcium 9.1 mg/dL (8.4-10.5) 02/15/18 05:00 Phosphorus 4.2 mg/dL (2.5-4.5) 02/14/18 06:00 Magnesium 2.6 mg/dL (1.7-2.2) H 02/14/18 06:00 Ferritin 64.6 ng/mL 02/13/18 11:30 Total Bilirubin 0.5 mg/dL (0.2-1.3) 02/15/18 05:00 AST 24 U/L (14-36) 02/15/18 05:00 ALT 31 U/L (7-56) 02/15/18 05:00 Alkaline Phosphatase 55 U/L (38-126) 02/15/18 05:00 Lactate Dehydrogenase 661 U/L (333-699) 02/12/18 16:51 Total Creatine Kinase 48 U/L (35-230) 02/12/18 16:51 Troponin I 0.05 ng/mL 02/13/18 05:20 NT-Pro-B Natriuret Pep 2310 pg/mL (0-450) H 02/12/18 16:51 Total Protein 6.5 g/dL (5.8-8.3) 02/15/18 05:00 Albumin 3.6 g/dL (3.0-4.8) 02/15/18 05:00 Globulin 2.9 gm/dL 02/15/18 05:00 Albumin/Globulin Ratio 1.3 (1.1-1.8) 02/15/18 05:00 Triglycerides 84 mg/dL (35-160) 02/14/18 06:00 Cholesterol 254 mg/dL (130-200) H 02/14/18 06:00 LDL Cholesterol Direct 181 mg/dL (0-129) H 02/14/18 06:00 HDL Cholesterol 53 mg/dL (29-60) 02/14/18 06:00 Vitamin B12 261 pg/mL (239-931) 02/13/18 11:30 Folate 11.8 ng/mL 02/13/18 11:30 TSH 3rd Generation 4.16 mIU/mL (0.46-4.68) 02/14/18 05:30 Urine Color Yellow (YELLOW) 02/13/18 06:00 Urine Appearance Clear (CLEAR) 02/13/18 06:00 Urine pH 6.0 (4.7-8.0) 02/13/18 06:00 Ur Specific [place] 1.020 (1.005-1.035) 02/13/18 06:00 Urine Protein Negative mg/dL (<30 mg/dL) 02/13/18 06:00 Urine Glucose (UA) Negative mg/dL (NEGATIVE) 02/13/18 06:00 Urine Ketones Trace mg/dL (NEGATIVE) H 02/13/18 06:00 Urine Blood Small (NEGATIVE) H 02/13/18 06:00 Urine Nitrate Negative (NEGATIVE) 02/13/18 06:00 Urine Bilirubin Negative (NEGATIVE) 02/13/18 06:00 Urine Urobilinogen 0.2 E.U./dL (<1 E.U./dL) 02/13/18 06:00 Ur Leukocyte Esterase Negative Lexis/uL (NEGATIVE) 02/13/18 06:00 Urine RBC 0 - 2 /hpf (0-2) 02/13/18 06:00 Urine WBC 1 - 3 /hpf (0-6) 02/13/18 06:00 Ur Epithelial Cells 3 - 4 /hpf (0-5) 02/13/18 06:00 Urine Bacteria Trace (NEG) 02/13/18 06:00 - Hospital Course Hospital Course: Sarthak Galeano, PGY-1, Internal Medicine Discharge Summary For Dr. Chun. 47 year old female with a past medical history significant for peripheral vascular disease status post vascular procedure two days prior to admission, bilateral right knee repair, and tobaaco abuse, who presents to [facility]'s Emergency Department on 02/12/18 with two days of shortness of breath and bilateral leg pain. Patient's family history (Mother) significant for blood clots. In the emergency department, patient was found to have extensive acute pulmonary embolism involving the segmental bilateral upper lobe, right middle lobe, lingular and bilateral lower lobe pulmonary arteries with evidence of right ventricular strain evidenced on CT Chest with pulmonary embolism protocol. Of note, a subpleural nodule was found on CT and recommended follow up in 6-12 months upon discharge. Chest X-ray was negative for acute disease process. EKG showed sinus tachycardia. Initial troponin was elevated and trended. Hematology/Oncology, Interventional Radiology, and Cardiology were consulted. She was given a bolus of heparin and started on a heparin drip at 18u /kg/hr. She was then placed under the Intensive Care Unit. The patient's vitals were continuously monitored. A Doppler of the lower extremity was done and negative for deep venous thrombosis. An ECHO was done with an ejection fraction of 53% and no visualization of thrombus or clot in the heart. Hematology/ Oncology ordered a thrombophilia work up. Echocardiogram on 02/13 showed EF of 55- 60% and mild to moderate tricuspid regurgitation. On 02/14/18 patient was transferred to the floors, heparin was discontinued and patient was started on Eliquis. During admission, patient noted to be anemic. Work up including iron studies, B12 and folate levels were all within normal limits. Patient educated about tobacco cessation considering risk factors. GI and DVT prophylaxis were administered. Patient tolerated her diet. Physical therapy recommended that patient could be discharged to home and that she should get skilled physical therapy. On 02/15/18, patient was given prescription for Eliquis to be taken at home. She was instructed to take eliquis 10 mg BID for 1 week and then 5 mg BID daily. Patient is to take eliquis for at least 1 year. Patient was also started on lipitor 40 mg daily for elevated LDL cholesterol and total cholesterol. Patient was told to follow up with PMD, Dr. Coelho and told to trend LFTs due to new cholesterol medication. Patient was told to follow up thrombophilia blood work in a week with Dr. Pearce. Patient was told to take pepcid for her abdominal pain. She was told to alert the healthcare staff of anticoagulation use prior to any procedure or hormonal therapy. Patient was educated regarding medication compliance. Patient was instructed to get a Chest CT in 6 months. - Date & Time of H&P Date of H&P: 02/12/18 Time of H&P: 22:10 Discharge Exam - Head Exam Head Exam: ATRAUMATIC, NORMAL INSPECTION, NORMOCEPHALIC - Eye Exam Eye Exam: EOMI, PERRL - Respiratory Exam Respiratory Exam: Clear to PA & Lateral, NORMAL BREATHING PATTERN - Cardiovascular Exam Cardiovascular Exam: REGULAR RHYTHM, RRR - GI/Abdominal Exam GI & Abdominal Exam: Normal Bowel Sounds, Soft - Extremities Exam Extremities exam: full ROM - Neurological Exam Neurological exam: Alert, CN II-XII Intact, Oriented x3 - Psychiatric Exam Psychiatric exam: Normal Affect, Normal Mood - Skin Skin Exam: Dry, Intact, Normal Color Discharge Plan - Discharge Medications Prescriptions: Atorvastatin [Lipitor] 40 mg PO DAILY #30 tab - Follow Up Plan Condition: CRITICAL Disposition: HOME/ ROUTINE Patient education suggested?: Yes Instructions: Heart Healthy Diet, Smoking: Not Just Harmful to Your Lungs and Heart, Shortness of Breath (Dyspnea) (DC), Quitting Smoking, Pulmonary Embolism (DC) Additional Instructions: 1.You are tk take 10 mg eliquis twice a day each day for 1 week then continue 5 mg twice a day, daily. 2.Continue with normal activities then slowly increase. 3.Remaining blood results should be back in a week which you can follow up with Dr. Naidu. 4.Please be sure to follow up with your PMD Dr. Coelho. 5.In case you experience stomach upset with new medication, you can take pepcid. Also consume yogurt to help. 6.Please be sure to always alert healthcare staff regarding your pulmonary embolism and anticoagulation prior to any procedure or starting of hormonal therapy. 7.Please do not miss any medications. Medication compliance is extremely important. 8.Please be sure to get a CT scan of chest in 6 months for follow up and re- evaluation. 9.You will be started on a new medication for high cholesterol, please be sure to follow up your LFT's with your Primary care physician. 10.If symptoms worsen or return please be sure to go to your nearest emergency department. Nursing If you begin to experience shortness breath, chest pain, your symptoms return, or any changes, return to the nearest emergency room or call 911. See care notes provided for further instructions. Referrals: Dante Coelho MD [Primary Care Provider] - Follow up with primary <Inés Chun - Last Filed: 02/16/18 12:00> Provider - Provider Date of Admission: 02/12/18 18:15 Attending physician: Inés Chun MD Primary care physician: Dante Coelho [facility] Course - Lab Results Lab Results: Micro Results 02/12/18 22:04 Nose MRSA Culture (Admit) - Final MRSA NOT DETECTED Most Recent Lab Values WBC 8.1 10^3/ul (4.5-11.0) 02/15/18 05:00 RBC 3.71 10^6/uL (3.5-6.1) 02/15/18 05:00 Hgb 11.9 g/dL (12.0-16.0) L 02/15/18 05:00 Hct 36.4 % (36.0-48.0) 02/15/18 05:00 MCV 98.1 fl (80.0-105.0) 02/15/18 05:00 MCH 32.1 pg (25.0-35.0) 02/15/18 05:00 MCHC 32.7 g/dl (31.0-37.0) 02/15/18 05:00 RDW 15.3 % (11.5-14.5) H 02/15/18 05:00 Plt Count 222 10^3/uL (120.0-450.0) 02/15/18 05:00 MPV 10.2 fl (7.0-11.0) 02/15/18 05:00 Gran % 72.5 % (50.0-68.0) H 02/15/18 05:00 Lymph % (Auto) 17.9 % (22.0-35.0) L 02/15/18 05:00 [place] % (Auto) 8.3 % (1.0-6.0) H 02/15/18 05:00 Eos % (Auto) 1.2 % (1.5-5.0) L 02/15/18 05:00 Baso % (Auto) 0.1 % (0.0-3.0) 02/15/18 05:00 Gran # 5.88 (1.4-6.5) 02/15/18 05:00 Lymph # (Auto) 1.5 (1.2-3.4) 02/15/18 05:00 [place] # (Auto) 0.7 (0.1-0.6) H 02/15/18 05:00 Eos # (Auto) 0.1 (0.0-0.7) 02/15/18 05:00 Baso # (Auto) 0.01 K/mm3 (0.0-2.0) 02/15/18 05:00 Retic Count 1.46 % (0.5-1.5) 02/13/18 11:30 PT 10.5 SECONDS (9.4-12.5) 02/12/18 16:00 INR 0.92 02/12/18 16:00 APTT 29.7 Seconds (25.1-36.5) 02/15/18 05:00 Sodium 142 mmol/L (132-148) 02/15/18 05:00 Potassium 4.1 mmol/L (3.6-5.0) 02/15/18 05:00 Chloride 109 mmol/L (98-107) H 02/15/18 05:00 Carbon Dioxide 24 mmol/L (21-33) 02/15/18 05:00 Anion Gap 13 (10-20) 02/15/18 05:00 BUN 14 mg/dL (7-21) 02/15/18 05:00 Creatinine 0.7 mg/dl (0.7-1.2) 02/15/18 05:00 Est GFR ( Amer) > 60 02/15/18 05:00 Est GFR (Non-Af Amer) > 60 02/15/18 05:00 Random Glucose 98 mg/dL (70-110) 02/15/18 05:00 Hemoglobin A1c 5.3 % (4.2-6.5) 02/14/18 05:30 Calcium 9.1 mg/dL (8.4-10.5) 02/15/18 05:00 Phosphorus 4.2 mg/dL (2.5-4.5) 02/14/18 06:00 Magnesium 2.6 mg/dL (1.7-2.2) H 02/14/18 06:00 Ferritin 64.6 ng/mL 02/13/18 11:30 Total Bilirubin 0.5 mg/dL (0.2-1.3) 02/15/18 05:00 AST 24 U/L (14-36) 02/15/18 05:00 ALT 31 U/L (7-56) 02/15/18 05:00 Alkaline Phosphatase 55 U/L (38-126) 02/15/18 05:00 Lactate Dehydrogenase 661 U/L (333-699) 02/12/18 16:51 Total Creatine Kinase 48 U/L (35-230) 02/12/18 16:51 Troponin I 0.05 ng/mL 02/13/18 05:20 NT-Pro-B Natriuret Pep 2310 pg/mL (0-450) H 02/12/18 16:51 Total Protein 6.5 g/dL (5.8-8.3) 02/15/18 05:00 Albumin 3.6 g/dL (3.0-4.8) 02/15/18 05:00 Globulin 2.9 gm/dL 02/15/18 05:00 Albumin/Globulin Ratio 1.3 (1.1-1.8) 02/15/18 05:00 Triglycerides 84 mg/dL (35-160) 02/14/18 06:00 Cholesterol 254 mg/dL (130-200) H 02/14/18 06:00 LDL Cholesterol Direct 181 mg/dL (0-129) H 02/14/18 06:00 HDL Cholesterol 53 mg/dL (29-60) 02/14/18 06:00 Vitamin B12 261 pg/mL (239-931) 02/13/18 11:30 Folate 11.8 ng/mL 02/13/18 11:30 TSH 3rd Generation 4.16 mIU/mL (0.46-4.68) 02/14/18 05:30 Urine Color Yellow (YELLOW) 02/13/18 06:00 Urine Appearance Clear (CLEAR) 02/13/18 06:00 Urine pH 6.0 (4.7-8.0) 02/13/18 06:00 Ur Specific [place] 1.020 (1.005-1.035) 02/13/18 06:00 Urine Protein Negative mg/dL (<30 mg/dL) 02/13/18 06:00 Urine Glucose (UA) Negative mg/dL (NEGATIVE) 02/13/18 06:00 Urine Ketones Trace mg/dL (NEGATIVE) H 02/13/18 06:00 Urine Blood Small (NEGATIVE) H 02/13/18 06:00 Urine Nitrate Negative (NEGATIVE) 02/13/18 06:00 Urine Bilirubin Negative (NEGATIVE) 02/13/18 06:00 Urine Urobilinogen 0.2 E.U./dL (<1 E.U./dL) 02/13/18 06:00 Ur Leukocyte Esterase Negative Lexis/uL (NEGATIVE) 02/13/18 06:00 Urine RBC 0 - 2 /hpf (0-2) 02/13/18 06:00 Urine WBC 1 - 3 /hpf (0-6) 02/13/18 06:00 Ur Epithelial Cells 3 - 4 /hpf (0-5) 02/13/18 06:00 Urine Bacteria Trace (NEG) 02/13/18 06:00 Anti-Cardiolipin IgG Ab <14 GPL (<=14) 02/13/18 14:10 Anti-Cardiolipin IgA Ab <11 APL (<=11) 02/13/18 14:10 Anti-Cardiolipin IgM Ab <12 MPL (<=12) 02/13/18 14:10 Attending/Attestation - Attestation I have personally seen and examined this patient.: Yes I have fully participated in the care of the patient.: Yes I have reviewed all pertinent clinical information, including history, physical exam and plan: Yes Notes (Text): 02/16/18 11:59 Attending note; Patient seen and examined with resident. Patient's by the bedside. Denies any shortness of breath. Vitals stable. Leg pain is improving. Ambulating fine. Patient is a 47 year old female with a past medical history significant for PVD s/p vascular procedure two days ago who presents with two days of SOB and bilateral leg pain. CT angio showed bilateral pulmonary embolus with right heart strain. Treated with IV heparin drip initially and then started on eliquis. Risk factors includes recent surgery, immobilization, obesity, family history of blood clot in mother at age 60. Lower extremity Doppler is negative for DVT. Elevated troponin; trending down. secondary to right heart strain. Monitor closely. Echocardiogram showed ejection fraction of 56% with RVSP 52. Cardiology evaluation appreciated. Pulmonary nodule; needs follow-up as outpatient. patient aware of the plan. Case discussed with oncologist in detail. Hypercoagulable workup in process. the patient will follow-up with Dr. Pearce in 1 week to get results. Physical therapy evaluation appreciated. Patient will be discharged home today. Upon discharge the patient will follow-up with PMD . Follow-up with oncology Dr. Pearce in 1 week.
[2018-02-15 11:57] VITALS: BP 126/82; PULSE 77; RESP 21; TEMP 98.9
--- NOTE | 2018-02-15 19:34 | CP.PCM.PN ---
Subjective - Date & Time of Evaluation Date of Evaluation: 02/14/18 Time of Evaluation: 17:00 - Subjective Subjective: Feeling better Objective - Vital Signs/Intake and Output Vital Signs (last 24 hours): Temp Pulse Resp BP Pulse Ox 98.9 F 77 21 126/82 95 02/15/18 11:56 02/15/18 11:56 02/15/18 11:56 02/15/18 11:56 02/15/18 06:00 Intake and Output: 02/15/18 02/16/18 18:59 06:59 Intake Total 600 Balance 600 - Labs Labs: 02/15/18 05:00 02/15/18 05:00 PT 10.5 SECONDS (9.4-12.5) 02/12/18 16:00 INR 0.92 02/12/18 16:00 APTT 29.7 Seconds (25.1-36.5) 02/15/18 05:00 - Head Exam Head Exam: ATRAUMATIC - Eye Exam Eye Exam: Normal appearance - ENT Exam ENT Exam: Mucous Membranes Dry - Respiratory Exam Respiratory Exam: NORMAL BREATHING PATTERN - Cardiovascular Exam Cardiovascular Exam: +S1, +S2 - GI/Abdominal Exam GI & Abdominal Exam: Normal Bowel Sounds - Extremities Exam Extremities Exam: Pedal Edema Assessment and Plan (1) Pulmonary emboli Assessment & Plan: risk factors include obesity, cigarettes, limited mobility from arthritis, recent vascular intervention f/u inherited thrombophilia; protein C+S and antithrombin III to be sent at a later time due to recent clot. on therapeutic anticoagulation; consider NOAC for outpatient treatment Status: Acute (2) Coagulopathy Assessment & Plan: secondary to anticoagulation Status: Acute (3) Anemia Assessment & Plan: mild work up sent Status: Acute (4) Tobacco abuse Assessment & Plan: smoking cessation discussed at length Status: Acute
[2018-02-16 04:24] LABS: CARDIOLIPIN AB (IGA) <11 APL (<=11); CARDIOLIPIN AB (IGG) <14 GPL (<=14)
[2018-02-17 16:13] LABS: CARDIOLIPIN AB (IGM) <12 MPL (<=12); PHOSPHATIDYLSERINE AB IGA <20 U/mL (<20); PHOSPHATIDYLSERINE AB IGG <10 U/mL (<10); PHOSPHATIDYLSERINE AB IGM <25 U/mL (<25)
== END 2018-02-15 15:51 | disposition home or self-care (01) | DRG 176 ==
LOC: ED 14:06 → ERH 18:15 → CCU 21:42 → 2RNO 02-13 21:23
PROVIDERS: ADMIT Internal Medicine; ATTEND Internal Medicine
PROC: 3E033GC Introduction of Other Therapeutic Substance into Peripheral Vein, Percutaneous Approach (ICD-10-PCS; principal; 2018-02-12)
DX: I26.99 Other pulmonary embolism without acute cor pulmonale (principal); D68.9 Coagulation defect, unspecified; Z68.41 Body mass index [BMI] 40.0-44.9, adult; I51.9 Heart disease, unspecified; I08.3 Combined rheumatic disorders of mitral, aortic and tricuspid valves; E03.9 Hypothyroidism, unspecified; I73.9 Peripheral vascular disease, unspecified; E66.01 Morbid (severe) obesity due to excess calories; D64.9 Anemia, unspecified; R91.1 Solitary pulmonary nodule; D72.829 Elevated white blood cell count, unspecified; F17.210 Nicotine dependence, cigarettes, uncomplicated; Z79.01 Long term (current) use of anticoagulants; Z83.3 Family history of diabetes mellitus; Z91.040 Latex allergy status

== ENCOUNTER 2018-05-12 12:25 | Emergency (ER) | payer OTHER ==
[2018-05-12 12:25] VITALS: BMI 41.3
[2018-05-12 13:04] VITALS: RESP 18
[2018-05-12 13:56] VITALS: TEMP 98.3
--- NOTE | 2018-05-12 16:15 | RAD ---
Date of service: 05/12/2018 HISTORY: LE edema COMPARISON: 02/12/2018 FINDINGS: LUNGS: No active pulmonary disease. PLEURA: No significant pleural effusion identified, no pneumothorax apparent. CARDIOVASCULAR: No aortic atherosclerotic calcification present. Normal cardiac size. No pulmonary vascular congestion. OSSEOUS STRUCTURES: No significant abnormalities. VISUALIZED UPPER ABDOMEN: Normal. OTHER FINDINGS: None. IMPRESSION: No active disease.
--- NOTE | 2018-05-12 16:51 | US ---
HISTORY: Leg pain and swelling. Evaluate for DVT PHYSICIAN(S): Bon Martin MD. TECHNIQUE: Duplex sonography and color-flow Doppler with graded compression were used to evaluate the deep venous systems of both lower extremities. The exam is limited by body habitus and FINDINGS: The visualized deep venous systems of both lower extremities are sonographically normal and compressible. Normal wave forms and augmentation are seen. There is no sonographic evidence for deep venous thrombosis in the visualized segments of both lower extremities. IMPRESSION: No sonographic evidence for deep venous thrombosis in the visualized segments of both lower extremities. Limited study
[2018-05-12 17:14] LABS: BASO # 0.02 K/mm3 (0.0-2.0); BASO % 0.2 % (0.0-3.0); EOS # 0.5 (0.0-0.7); EOS % 5.1 % (1.5-5.0); GRAN # 6.48 (1.4-6.5); GRAN % 72.7 % (50.0-68.0); LYMPH # 1.3 (1.2-3.4); LYMPH % 14.3 % (22.0-35.0); MEAN CELL VOLUME 97.1 fl (80.0-105.0); MEAN CORPUSCULAR HEMOGLOBIN 31.6 pg (25.0-35.0); MEAN CORPUSCULAR HGB CONC 32.5 g/dl (31.0-37.0); MEAN PLATELET VOLUME 11.1 fl (7.0-11.0); MONO # 0.7 (0.1-0.6); MONO % 7.7 % (1.0-6.0); RBC 3.8 10^6/uL (3.5-6.1); RED CELL DISTRIBUTION WIDTH 14.6 % (11.5-14.5); WHITE BLOOD COUNT 8.9 10^3/uL (4.5-11.0)
[2018-05-12 17:57] LABS: VENOUS BLOOD GAS BASE EXCESS 0.8 mmol/L (0.0-2.0); VENOUS BLOOD GAS PO2 141 mm/Hg (30-55); VENOUS BLOOD PH 7.42 (7.32-7.43)
[2018-05-12] MEDS ORDERED: Piperacill/Tazo 4.5gm in NS 4.5 GM/100 ML BAG IVPB STA (18:02)
[2018-05-12] MEDS ORDERED: Vancomycin 1gm in NS 250ml 1 GM/250 ML BAG IVPB STA (18:02)
[2018-05-12 18:07] LABS: INR 1.02; PARTIAL THROMBOPLASTIN TIME 29.6 Seconds (25.1-36.5); PROTHROMBIN TIME 11.6 SECONDS (9.4-12.5)
[2018-05-12 18:10] LABS: ALB/GLOB RATIO 1.3 (1.1-1.8); ALBUMIN 3.6 g/dL (3.0-4.8); ALT/SGPT 75 U/L (7-56); AST/SGOT 66 U/L (14-36); BLOOD UREA NITROGEN 14 mg/dL (7-21); CALCIUM 8.3 mg/dL (8.4-10.5); GFR NON-AFRICAN AMERICAN > 60
[2018-05-12 18:17] LABS: B-TYPE NATRIURETIC PEPTIDE 356 pg/mL (0-450)
[2018-05-12 18:34] LABS: URINE BILIRUBIN SMALL (NEGATIVE); URINE BLOOD NEGATIVE (NEGATIVE); URINE GLUCOSE (UA) NEGATIVE (NEGATIVE); URINE LEUKOCYTE ESTERASE NEGATIVE Leu/uL (NEGATIVE); URINE PROTEIN NEGATIVE mg/dL (<30 mg/dL); URINE UROBILINOGEN 0.2 E.U./dL (<1 E.U./dL)
[2018-05-12 18:37] LABS: URINE APPEARANCE SL CLOUDY (CLEAR); URINE COLOR YELLOW (YELLOW)
[2018-05-12] MEDS ORDERED: Potassium Chloride 20 mEq/15 ml LIQ UD PO STA (18:49)
[2018-05-12] MEDS ORDERED: Morphine 4 mg/ml ISec IVP STA (19:13)
--- NOTE | 2018-05-12 19:17 | ED PDOC ---
Arrival/HPI - General Chief Complaint: Upper Extremity Problem/Injury Time Seen by Provider: 05/12/18 13:50 Historian: Patient - History of Present Illness Narrative History of Present Illness (Text): 05/13/18 16:53 48 yo F w/ PMH of diabetes, high cholesterol and PE on eliquis, presents complaining of atraumatic b/l LE edema, erythema and pain x 1 week. Patient states that she recently returned from a trip from [place]. She states that she was recently evaluated in an ER in [facility], [facility], 3 weeks ago and had a CTA of her chest which showed no PE. Reports no fever, chills, trauma, injury, numbness, chest pain, back pain, shortness of breath, dyspnea. PMD [place] Past Medical History - Infectious Disease Hx of Infectious Diseases: None - Tetanus Immunization Tetanus Immunization: Unknown - Reproductive Menopause: No - Cardiac Hx Cardiac Disorders: Yes Other/Comment: Right leg vascular procedure - Pulmonary Hx Respiratory Disorders: No - Neurological Hx Neurological Disorder: No - HEENT Hx HEENT Disorder: No - Renal Hx Renal Disorder: No - Endocrine/Metabolic Hx Endocrine Disorders: No - Hematological/Oncological Hx Blood Disorders: No - Integumentary Hx Dermatological Disorder: No - Musculoskeletal/Rheumatological Hx Musculoskeletal Disorders: No - Gastrointestinal Hx Gastrointestinal Disorders: No - Genitourinary/Gynecological Hx Genitourinary Disorders: No - Psychiatric Hx Psychophysiologic Disorder: No Hx Substance Use: No - Anesthesia Hx Anesthesia: No Family/Social History Family/Social History: No Known Family HX Smoking Status: Never Smoked Hx Alcohol Use: No Hx Substance Use: No Allergies/Home Meds Allergies/Adverse Reactions: Allergies latex Allergy (Verified 02/12/18 14:35) RASH Review of Systems - Review of Systems Constitutional: absent: Fatigue, Fevers Respiratory: absent: SOB, Cough, Sputum, Wheezing Cardiovascular: absent: Chest Pain, Palpitations Gastrointestinal: absent: Abdominal Pain, Diarrhea, Vomiting Musculoskeletal: Other (b/l LE pain, redness and swelling). absent: Arthralgias, Back Pain, Neck Pain, Joint Swelling Skin: absent: Rash, Pruritis, Skin Lesions Physical Exam Vital Signs Temp Pulse Resp BP Pulse Ox 05/12/18 12:59 98.3 F 108 H 18 135/84 99 Temperature: Afebrile Blood Pressure: Normal Pulse: Regular Respiratory Rate: Normal Appearance: Positive for: Well-Appearing, Non-Toxic, Comfortable Pain Distress: None Mental Status: Positive for: Alert and Oriented X 3 - Systems Exam Head: Present: Atraumatic, Normocephalic Pupils: Present: PERRL Extroacular Muscles: Present: EOMI Conjunctiva: Present: Normal Mouth: Present: Moist Mucous Membranes Neck: Present: Normal Range of Motion Respiratory/Chest: Present: Clear to Auscultation, Good Air Exchange. No: Respiratory Distress, Accessory Muscle Use Cardiovascular: Present: Regular Rate and Rhythm, Normal S1, S2. No: Murmurs Abdomen: No: Tenderness, Distention, Peritoneal Signs Back: Present: Normal Inspection Upper Extremity: Present: Normal Inspection. No: Cyanosis, Edema Lower Extremity: Present: Edema, NORMAL PULSES, Neurovascularly Intact, Capillary Refill < 2 s (b/l LE : +erythema, edema and tenderness to lower legs.). No: Temperature Abnormalties Neurological: Present: GCS=15, CN II-XII Intact, Speech Normal Skin: Present: Warm, Dry, Normal Color. No: Rashes Psychiatric: Present: Alert, Oriented x 3, Normal Insight, Normal Concentration Medical Decision Making ED Course and Treatment: 05/13/18 16:59 Plan : - IV - Labs - US doppler b/l LE - vancomycin IV - zosyn IV - morphine IV - zofran IV Labs reviewed : wbc 8.9, lactate 1.9, k 3.5, bnp 356. US b/l LE doppler : (-) for DVT. On re-evaluation, patient is laying in bed in no acute distress. She continues to deny any chest pain, shortness of breath, dyspnea or back pain. Diagnostic results d/w the patient. Dx of cellulitis d/w the patient. Patient given KCl po. Patient is cleared for d/c. Advised to f/u w/ pmd in 1-2 days w/o fail. Take medications as prescribed and to return to the ER at any time for any new or worsening symptoms. - Lab Interpretations Lab Results: 05/12/18 16:50 05/12/18 17:40 Lab Results 05/12/18 18:11: Urine Color Yellow, Urine Appearance Sl cloudy, Urine pH 6.0, Ur Specific Heath 1.020, Urine Protein Negative, Urine Glucose (UA) Negative, Urine Ketones Trace H, Urine Blood Negative, Urine Nitrate Negative, Urine Bilirubin Small H, Urine Urobilinogen 0.2, Ur Leukocyte Esterase Negative 05/12/18 17:40: pO2 141 H, VBG pH 7.42, VBG pCO2 39.0 L, VBG HCO3 25.3, VBG Total CO2 26.5, VBG O2 Sat (Calc) 98.5 H, VBG Base Excess 0.8, VBG Potassium 3.4 L, Sodium 138.0, Chloride 106.0, Glucose 103, Lactate 1.9, FiO2 21.0, Venous Blood Potassium 3.4 L 05/12/18 17:40: Sodium 138, Chloride 104, Potassium 3.5 L, Carbon Dioxide 26, Anion Gap 12, BUN 14, Creatinine 0.5 L, Est GFR ( Amer) > 60, Est GFR (Non-Af Amer) > 60, Random Glucose 103, Calcium 8.3 L, Magnesium 2.0, Total Bilirubin 0.8, AST 66 H D, ALT 75 H, Alkaline Phosphatase 87, NT-Pro-B Natriuret Pep 356, Total Protein 6.3, Albumin 3.6, Globulin 2.7, Albumin/Globulin Ratio 1.3 05/12/18 17:40: PT 11.6, INR 1.02, APTT 29.6 05/12/18 16:50: WBC 8.9, RBC 3.80, Hgb 12.0, Hct 36.9, MCV 97.1, MCH 31.6, MCHC 32.5, RDW 14.6 H, Plt Count 290, MPV 11.1 H, Gran % 72.7 H, Lymph % (Auto) 14.3 L, [place] % (Auto) 7.7 H, Eos % (Auto) 5.1 H, Baso % (Auto) 0.2, Gran # 6.48, Lymph # (Auto) 1.3, [place] # (Auto) 0.7 H, Eos # (Auto) 0.5, Baso # (Auto) 0.02 - RAD Interpretation Radiology Orders: 05/12/18 14:21 DUPLEX LOWER EXTRM VEIN BILAT [US] Stat 05/12/18 14:22 CHEST PORTABLE [RAD] Stat - Medication Orders Current Medication Orders: Vancomycin HCl (Vancomycin 1gm) 1 gm in 250 mls @ 167 mls/hr IVPB STAT STA; Protocol Stop: 05/12/18 19:31 Discontinued Medications Piperacillin Sod/Tazobactam Sod (Zosyn 4.5 Gm In Ns 100ml) 4.5 gm in 100 mls @ 200 mls/hr IVPB STAT STA; Protocol Stop: 05/12/18 18:31 Potassium Chloride (Potassium Chloride Oral Soln) 20 meq PO STAT STA Stop: 05/12/18 18:50 - PA / DIRECTOR OF ANNUAL GIVING / Resident Statement MD/DO has reviewed & agrees with the documentation as recorded. Disposition/Present on Arrival - Present on Arrival Any Indicators Present on Arrival: Yes History of DVT/PE: Yes History of Uncontrolled Diabetes: No Urinary Catheter: No History of Decub. Ulcer: No History Surgical Site Infection Following: None - Disposition Have Diagnosis and Disposition been Completed?: Yes Diagnosis: Cellulitis Disposition: HOME/ ROUTINE Disposition Time: 19:10 Patient Plan: Discharge Condition: STABLE Discharge Instructions (ExitCare): Cellulitis (ED) Additional Instructions: Thank you for letting us take care of you today. You were treated for cellulitis. The emergency medical care you received today was directed at your acute symptoms. If you were prescribed any medication, please fill it and take as directed. It may take several days for your symptoms to resolve. Return to the Emergency Department if your symptoms worsen, do not improve, or if you have any other problems. Please contact your doctor in 2 days for re-evaluation and follow up. Bring any paperwork you were given at discharge with you along with any medications you are taking to your follow up visit. Our treatment cannot replace ongoing medical care by a primary care provider (PCP) outside of the emergency department. Thank you for allowing the [facility] team to be part of your care today. Prescriptions: Cephalexin [Keflex] 500 mg PO Q6 #28 capsule Sulfamethoxazole/Trimethoprim [Bactrim DS 800 mg-160 mg] 2 tab PO BID #28 tab traMADol [Ultram] 50 mg PO TID PRN #12 tab PRN Reason: Pain, Moderate (4-7) Forms: [employer] (Polish), WORK NOTE
[2018-05-12 21:53] VITALS: BP 132/86; PULSE 90; O2SAT 100
== END 2018-05-12 21:49 | disposition home or self-care (01) ==
LOC: ED 12:25
DX: L03.90 Cellulitis, unspecified (principal); E11.9 Type 2 diabetes mellitus without complications; E78.00 Pure hypercholesterolemia, unspecified
CPT/HCPCS: 71045; 80053; 81003; 82803; 83735; 83880; 85025; 85610; 85730; 87040; 93970; 96365; 96367; 96375; 99284; J2270; J2405; J2543